=== PATIENT | male | born 2000 | race Caucasian/White ===

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

== ENCOUNTER 2020-01-22 01:57 | Emergency (ER) | payer BC, OTHER ==
[~2020-01-22] VITALS: Ht 188 cm; Wt 82.0 kg
[~2020-01-22 01:57] MED LIST changes: +CEFD300C3 PO; +OFLO5DRO33 OT
--- OUTSIDE RECORDS SUMMARY | 2020-01-22 02:07 | XMS REPORT ---
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 [employer] [facility] [place] [employer] [facility] [employer] Address [address] [address] Care Team Providers Care Rating Clerk Name Role Phone BERTA MAHARAJ Unavailable Unavailable GUNNER SULTANA Unavailable Unavailable Unavailable Unavailable Unavailable Unavailable Unavailable Unavailable Allergies Normalized Allergy Reported Date of Reaction(s) Care Provider Facility Allergy Type classification allergen Allergy Onset DA (6 Unclassified No Known Drug 04-02-2010 - no information YANELIS RANDALL , Not Available sources.) Allergies (22288) Medications No Information Problems Problem Normalized Date Last Normalized Normalized Provider Fa cility Classification Problem(s) Recorded Problem Problem Sta tus Duration Abdominal pain Abdominal Episodic Completed YANELIS RANDALL , Not Available (1 source.) pain, (77401) unspecified site Fluid and Dehydration Episodic Completed YANELIS RANDALL , Not Av ailable electrolyte (76839) disorders (1 source.) Other ear and Otalgia, Episodic Completed BERTA Not Avail able sense organ bilateral [place] (31434) disorders (3 sources.) Other lower Other Episodic Completed YANELIS RANDALL , Not Myriam ilable respiratory nonspecific (47294) disease (1 abnormal source.) finding of lung field Otitis media Otitis media, Episodic Completed BERTA Not A vailable and related unspecified, [place] (83993) conditions (3 bilateral sources.) Procedures No Information Immunizations Normalized Immunization Date Notes Care Provider Facili ty Immunization influenza, seasonal, 07-03-2019 no information no name [facility] injectable [facility] (10690) tetanus toxoid, 07-03-2019 no information no name [facility] reduced diphtheria [facility] acellular pertussis (63204) vaccine, adsorbed Results No Information Vital Signs No Information Interventions No Information Plan of Treatment No Information Goals No Information Social History No Information Functional Status No Information Mental Status No Information Encounters Encounter Normalized Encounter Encounter Diagnosis Care Provi gunner Organization Date Type 02-12-2017 Emergency department no information no name no organization name - patient visit 02-12-2017 07-03-2019 Patient encounter no information no name no or ganization name procedure 02-11-2017 Patient encounter no information no name no or ganization name procedure 11-14-2011 Patient encounter no information no name no or ganization name procedure 10-16-2011 Patient encounter no information no name no or ganization name procedure 10-09-2011 Patient encounter no information no name no or ganization name procedure no information Pre-operative no name no organization name examination, unspecified Medical Equipment No Information Payers No Information Additional Source Comments This clinical document has been generated using P[employer] software that has been certified by the Office of the National Coordinator for Health Information Technology (ONC 15.99.04.3023.Diam.31.00.0.649325) and the National Committee for Asbestos Microscopist (NCQA, as an eMeasure certified technology). FOR RECORDS PERTAINING TO PATIENTS WHO ARE OR HAVE BEEN ENROLLED IN A CHEMICAL D EPENDENCY/SUBSTANCE ABUSE PROGRAM, SOME INFORMATION MAY BE OMITTED. This clinica l summary was aggregated from multiple sources. Caution should be exercised in using it in the provision of clinical care. This summary normalizes information from multiple sources, and as a consequence, information in this document may ma terially change the coding, format and clinical context of patient data. In joseph tion, data may be omitted in some cases. CLINICAL DECISIONS SHOULD BE BASED ON T HE PRIMARY CLINICAL RECORDS. [employer]. provides no warranty or guara ntee of the accuracy or completeness of information in this document.The followi ng information is based on time limited clinical information
[2020-01-22 02:29] VITALS: BP 125/76
[2020-01-22] MEDS ORDERED: LIDOCAINE 1% INJ 20 ML 20 ML VIAL ONE (02:43)
[2020-01-22] MEDS ORDERED: LIDOCAINE 2% 20 ML (XYLOCAINE) VIAL INJ ONE (02:45)
[2020-01-22] MEDS ORDERED: RX-TRIMETH/SULFA. 160-800 MG (BACTRIM DS) TAB PPK#2 PO STA (03:00)
--- NOTE | 2020-01-22 03:02 | NUR ---
5 sutures placed to right 3rd finger Addendum: 01/22/20 at 0320 by TIM right 4th finger
[2020-01-22] MEDS ORDERED: SULF1TAB35 PO (03:10)
--- NOTE | 2020-01-22 03:11 | ED Upper Extremity ---
General Chief Complaint: Laceration Stated Complaint: RT HAND RING FINGER INJURY Nursing Triage Note: right volar distal laceration after hitting house approx. 2230 01/21/2020 Nursing Sepsis Screen: No Definite Risk Source: patient History of Present Illness Date Seen by Provider: January 22, 2020 Time Seen by Provider: 02:36 Initial Comments PT ARRIVES VIA POV FROM HOME PT STATES HE "DRANK TOO MUCH" TONIGHT ( AT LEAST 8 SHOTS OF VODKA TONIGHT, WITH LAST DRINK AROUND 2244, AFTER HE INJURED HIMSELF) PT STATES AT 2245, HE "TRIED TO SWAT A MOTH" AND HIT THE SIDE OF THE H OUSE--PLASTIC SIDING--AND SUSTAINED A CUT TO RIGHT 4TH FINGER. DENIES OTHER INJURIES FROM THE INCIDENT NO PRIOR INJURIES TO THIS FINGER PT IS RIGHT HANDED PT STATES LAST TETANUS SHOT WAS AGE 14, AND DECLINES ONE TODAY Allergies and Home Medications Allergies Coded Allergies: No Known Drug Allergies (Unverified , 04/02/10) Home Medications Sulfamethoxazole/Trimethoprim 1 Each Tablet, 1 EACH PO BID Prescribed by: LESVIA ENGLISH on 01/22/20 0310 Patient Home Medication List Home Medication List Reviewed: Yes Review of Systems Constitutional: no symptoms reported Musculoskeletal: see HPI Skin: see HPI Psychiatric/Neurological: No Symptoms Reported; Denies Numbness, Denies Paresthesia, Denies Weakness Past Nkafvgk-Cycrre-Kevngu Hx Past Med/Social Hx: Reviewed and Corrections made Patient Social History Alcohol Use: Regular Use (DRINKS "ONCE A WEEK" --HEAVY AT TIMES) Number of Drinks Today: 6 Alcohol Beverage of Choice: Vodka Recreational Drug Use: No Drug of Choice: denies Smoking Status: Current Everyday Smoker (< 1/2 PPD) Type Used: Cigarettes Recent Foreign Travel: No Contact w/Someone Who Travel: No Recent Infectious Disease Expo: No Recent Hopitalizations: No Physical Abuse: No Sexual Abuse: No Mistreated: No Fear: No Immunizations Up To Date Tetanus Booster (TDap): Less than 5yrs PED Vaccines UTD: Yes Seasonal Allergies Seasonal Allergies: No Past Medical History Surgeries: Yes (WISDOM TEETH REMOVED) Respiratory: No Cardiac: No Neurological: No Genitourinary: No Gastrointestinal: No Musculoskeletal: No Endocrine: No HEENT: No Cancer: No Psychosocial: No Integumentary: No Blood Disorders: No Family Medical History No Pertinent Family Hx Physical Exam Vital Signs Vital Signs - First Documented 01/22/20 02:29 Temp 36.7 Pulse 76 Resp 18 B/P (MAP) 125/76 (92) Pulse Ox 98 O2 Delivery Room Air Capillary Refill : Less Than 3 Seconds Height, Weight, BMI Height: 6'2.00" Weight: 180lbs. oz. 81.028407er; 23.00 BMI Method:Stated General Appearance: WD/WN, no apparent distress Hand: Right (4TH FINGER PAD WITH 2.5 CM IRREGULAR LACERATION. DEEP STRUCTURES INTACT. NO ACTIVE BLEEDING. MOTOR/SENSORY/VASCULAR INTACT. ), laceration, soft tissue tenderness Neurologic/Psychiatric: no motor/sensory deficits, alert, normal mood/affect, oriented x 3, other (SPEECH CLEAR, GAIT STEADY) Skin: normal color, warm/dry, other ( ABOVE) Procedures/Interventions Other Wound Location RIGHT 4TH FINGER PAD Wound Length (cm): 2.5 Wound's Depth, Shape: irregular, sub Q Wound Explored: clean Betadine Prep?: No (BETASEPT) Anesthesia: 1% Lidocaine Suture: Ethlion Suture Size: 4-0 Number of Sutures: 5 Layer Closure?: 1 Sterile Dressing Applied?: Yes Progress/Results/Core Measures Results/Orders My Orders Orders - LESVIA ENGLISH DO Finger(S) (01/22/20 02:37) Lidocaine 2% Injection 20 Ml (Xylocaine (01/22/20 02:45) Lidocaine 1% Inj 20 Ml (Xylocaine 1% Inj (01/22/20 02:43) Rx-Trimeth/Sulfameth Ds Tab (Rx-Bactrim/ (01/22/20 03:00) Medications Given in ED Current Medications Medications Dose Ordered Sig/Lynda Route Start Time Stop Time Status Last Admin Dose Admin Lidocaine HCl 20 ml STK-MED ONCE .ROUTE 01/22/20 02:43 01/22/20 02:52 DC 01/22/20 02:54 20 ML Vital Signs/I&O 01/22/20 02:29 Temp 36.7 Pulse 76 Resp 18 B/P (MAP) 125/76 (92) Pulse Ox 98 O2 Delivery Room Air Blood Pressure Mean: 92 Diagnostic Imaging Comments XRAYS RIGHT 4TH FINGER--NO ACUTE BONY INJURY, PENDING RADIOLOGIST REVIEW Reviewed: Reviewed by Me Departure Impression Primary Impression: laceraion RigHT 4th finger Disposition: 01 HOME, SELF-CARE Condition: Stable Departure-Patient Inst. Referrals: NO,LOCAL PHYSICIAN (PCP/Family) Primary Care Physician Patient Instructions: Laceration Repair With Stitches (DC) Add. Discharge Instructions: CLEAN WOUND TWICE A DAY WITH ANTIBACTERIAL SOAP AND WATER ON A Q-TIP, OTHERWISE KEEP CLEAN AND DRY SUTURES OUT IN 10 DAYS--RETURN TO ER FOR REMOVAL TYLENOL NEEDED FOR PAIN All discharge instructions reviewed with patient and/or family. Voiced understanding. Scripts Sulfamethoxazole/Trimethoprim (Bactrim Ds Tablet) 1 Each Tablet 1 EACH PO BID, #20 TAB Prov: LESVIA ENGLISH DO 01/22/20 Work/School Note: Work Release Form Date Seen in the Emergency Department: January 22, 2020 Return to Work: January 23, 2020 Other Restrictions Listed Below: KEEP WOUND CLEAN AND DRY LIMITED USE OF RIGHT HAND LESVIA ENGLISH DO January 22, 2020 03:11
--- NOTE | 2020-01-22 06:45 | Diagnostic Imaging Report ---
Clinical indication: Patient with laceration anterior side of distal right 4th digit. Patient cut it on the siding of the house while swatting a mosquito. EXAM: X-ray of the right 4th finger, 3 views. COMPARISON: None. Findings and impression: 1: There is no acute fracture or dislocation. 2: There is no radiodense foreign object. There is soft tissue swelling and irregularity involving the volar aspect of the soft tissue adjacent to the 4th distal phalanx. This may be related to patient's history of laceration. 3: There is no other significant abnormality seen on this exam. Dictated by: Dictated on workstation # [id number]
== END 2020-01-22 03:17 | disposition home or self-care (01) ==
LOC: EDUNIT# 01:57 → ER 02:02
DX: S61.214A Laceration without foreign body of right ring finger without damage to nail, initial encounter (principal); F17.210 Nicotine dependence, cigarettes, uncomplicated; W26.8XXA Contact with other sharp object(s), not elsewhere classified, initial encounter
CPT/HCPCS: 12001; 73140

== ENCOUNTER 2020-02-01 13:13 | Emergency (ER) | payer BC ==
[~2020-02-01] VITALS: Ht 190 cm; Wt 81.6 kg
[~2020-02-01 13:13] MED LIST changes: +SULF1TAB35 PO
[2020-02-01 13:44] VITALS: BP 121/76
--- OUTSIDE RECORDS SUMMARY | 2020-02-01 15:58 | XMS REPORT | Encounter Summary ---
Author Author [facility] Organization [facility] Address Unknown Phone Unavailable Care Team Providers Care Family Practice Physician Assistant Name Role Phone PCP Unavailable Reason for Visit * Reason Comments Finger laceration round 1130am today Encounter Details Care Team Description Date Type Department Martha Brooks, CUB REPORTER [address] [place] [address] Laceration of left index finger without foreign body without damage to nail, initial encounter (Primary Dx) 05/27/2018 Office Visit [facility] [email or web address] [address] [place] [address] Social History Date Tobacco Use Types Packs/Day Years Used Current Every Day Smoker Smokeless Tobacco: Never Used Tobacco Cessation: Ready to Quit: No; Co unseling Given: Yes Sex Assigned at Date Recorded Not on file Industry Job Start Date Occupation Not on file Not on file Not on file Travel End Travel History Travel Start No recent travel history available. documented as of this encounter Last Filed Vital Signs Reading Time Taken Comments Vital Sign 122/82 05/27/2018 12:54 PM CDT Blood Pressure 106 05/27/2018 12:54 PM CDT Pulse 37.3 C (99.2 F) 05/27/2018 12:54 PM CDT Temperature - - Respiratory Rate 97% 05/27/2018 12:54 PM CDT Oxygen Saturation - - Inhaled Oxygen Concentration 72.1 kg (159 lb) 05/27/2018 12:54 PM CDT Weight 190.5 cm (6' 3") 05/27/2018 12:54 PM CDT Height 19.87 05/27/2018 12:54 PM CDT Body Mass Index documented in this encounter Progress Notes * Ria, YOLI Thomas - 05/28/2018 8:14 AM CDT Associated Order(s): LACERATION REPAIR Post-Procedure Diagnose(s): Laceration of left index finger without foreign body without damage to nail, initial encounter HISTORY OF PRESENT ILLNESS Kushal Calixto, a 17 y.o. male presents with a Chief Complaint of Finger laceration (round 1130am today) Subjective 17 year old white male presents to the [facility] with complaints of a cut on his finger that occurred about 30 minutes ago. He was slicing a tomato and made a c lean cut with a with his tomato slicer. Her was able to stop the bleeding by lily lying pressure. He is up to date on tetanus. REVIEW OF SYSTEMS Review of Systems Constitutional: Negative for activity change, appetite change, chills, diaphores is, fatigue and fever. HENT: Negative for congestion, ear discharge, ear pain, sinus pain, sinus pressu re and sore throat. Eyes: Negative. Respiratory: Negative for cough, chest tightness, shortness of breath and wheezi ng. Gastrointestinal: Negative for abdominal pain, diarrhea, nausea and vomiting. Genitourinary: Negative for decreased urine volume and dysuria. Musculoskeletal: Negative for arthralgias, back pain, gait problem, joint swelli ng, myalgias, neck pain and neck stiffness. Skin: Positive for wound. Allergic/Immunologic: Negative for environmental allergies, food allergies and i mmunocompromised state. Neurological: Negative for weakness and headaches. Psychiatric/Behavioral: Negative for confusion. The patient is not nervous/anxio us. Objective PHYSICAL EXAM BP 122/82 | Pulse (!) 106 | Temp 99.2 F (37.3 C) | Ht 6' 3" (1.905 m) | Wt 72.1 kg (159 lb) | SpO2 97% | BMI 19.87 kg/m Physical Exam Constitutional: He is oriented to person, place, and time. He appears well-devel oped and well-nourished. No distress. HENT: Head: Normocephalic and atraumatic. Right Ear: External ear normal. Left Ear: External ear normal. Nose: Nose normal. Mouth/Throat: Oropharynx is clear and moist. No oropharyngeal exudate. Eyes: Pupils are equal, round, and reactive to light. Conjunctivae and EOM are n ormal. Right eye exhibits no discharge. Left eye exhibits no discharge. Neck: Normal range of motion. Neck supple. Cardiovascular: Normal rate, regular rhythm and normal heart sounds. Exam revea ls no gallop and no friction rub. No murmur heard. Pulmonary/Chest: Effort normal and breath sounds normal. No respiratory distress . He has no wheezes. He has no rales. He exhibits no tenderness. Abdominal: Soft. There is no tenderness. Musculoskeletal: Normal range of motion. He exhibits no edema or tenderness. Lymphadenopathy: He has no cervical adenopathy. Neurological: He is alert and oriented to person, place, and time. No cranial ne rve deficit. Skin: Skin is warm and dry. Capillary refill takes less than 2 seconds. He is no t diaphoretic. < 1 cm superficial laceration noted on palmar surface of left index finger- good approximation. No active bleeding noted Psychiatric: He has a normal mood and affect. His behavior is normal. Judgment a nd thought content normal. Nursing note and vitals reviewed. Laceration Repair Date/Time: 05/28/2018 9:09 AM Performed by: MARTHA BROOKS Authorized by: MARTHA BROOKS Body area: upper extremity Location details: left index finger Laceration length: 1 cm Foreign bodies: no foreign bodies Tendon involvement: none Nerve involvement: none Vascular damage: no Sedation: Patient sedated: no Preparation: Patient was prepped and draped in the usual sterile fashion. Irrigation solution: tap water Irrigation method: syringe Amount of cleaning: standard Debridement: none Degree of undermining: none Skin closure: Steri-Strips and glue Assessment ASSESSMENT and PLAN: ICD-10-CM ICD-9-CM 1. Laceration of left index finger without foreign body without damage to nail, initial encounter S61.446A 883.0 Patient tolerated procedure well. Keep dry for the first 24 hours. OK to let tommie er run over laceration after 24 hours. Do not soak. Steri strips sent with patie nt to reinforce if needed. Follow up with PCP PRN. Patient states understanding of all instruction. documented in this encounter Plan of Treatment Not on filedocumented as of this encounter Procedures Comments Procedure Name Priority Date/Time Associated Diag nosis LACERATION REPAIR Routine 05/28/2018 Laceration o f left index 8:14 AM CDT finger without foreign body without damage to nail, initial encounter documented in this encounter Results * LACERATION REPAIR (05/28/2018 8:14 AM CDT) Narrative Performed At Martha Brooks APRN 05/28/2018 9:12 AM [facility] Laceration Repair [facility] Date/Time: 05/28/2018 9:09 AM Performed by: MARTHA BROOKS Authorized by: MARTHA BROOKS Body area: upper extremity Location details: left index finger Laceration length: 1 cm Foreign bodies: no foreign bodies Tendon involvement: none Nerve involvement: none Vascular damage: no Sedation: Patient sedated: no Preparation: Patient was prepped and dr margaret in the usual sterile fashion. Irrigation solution: tap water Irrigation method: syringe Amount of cleaning: standard Debridement: none Degree of undermining: none Skin closure: Steri-Strips and glue Performing Organization Address City/State/Zipcode Ph one Number [facility] [address][id number] [place] [address] [facility] [address] [employer] documented in this encounter Visit Diagnoses Diagnosis Laceration of left index finger without foreign body without damage to nail, initial encounter - Primary documented in this encounter
--- OUTSIDE RECORDS SUMMARY | 2020-02-01 15:58 | XMS REPORT ---
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 [employer] [facility] [employer] Address [address] [address] Care Team Providers Care Hood Maker Name Role Phone BERTA MAHARAJ Unavailable Unavailable GUNNER SULTANA Unavailable Unavailable BERTA MAHARAJ Unavailable Unavailable AMADOR DO, LESVIA K Unavailable Unavailable Unavailable Unavailable Unavailable Unavailable Unavailable Unavailable Unavailable Unavailable Allergies Normalized Allergy Reported Date of Reaction(s) Care Provider Facility Allergy Type classification allergen Allergy Onset DA (6 Unclassified No Known Drug 04-02-2010 - no information YANELIS RANDALL , Not Available sources.) Allergies (63341) Medications No Information Problems Active Problems Problem Normalized Date Last Normalized Normalized Provider Fa cility Classification Problem(s) Recorded Problem Problem Sta tus Duration External cause Contact with 01-25-2020 - Episodic Active LESVIA AMADOR , DO [facility] Via codes: other sharp Lia Cut/boss (2 object(s), not Hospital - sources.) elsewhere [place] classified, (90989) initial encounter Open wounds of Laceration 01-25-2020 - Episodic Active LESVIA RE NO , DO [facility] Via extremities (2 without Lia sources.) foreign body Hospital - of right ring [place] finger without (76750) damage to nail, initial encounter Substance-rela Nicotine 01-25-2020 - Chronic Active LESVIA AMADOR , DO [facility] Via jose a disorders dependence, Lia (2 sources.) cigarettes, Hospital - uncomplicated [place] (47303) Other ear and Otalgia, 01-21-2020 - Episodic Active BERTA [facility] Via sense organ bilateral [place] disorders (4 Hospital - sources.) [place] (56917) Otitis media Otitis media, 01-21-2020 - Episodic Active GRETCH EN [facility] Via and related unspecified, [place] conditions (4 bilateral Hospital - sources.) [place] ([address]) Other injuries Unspecified 01-25-2020 - Episodic Active LESVIA R SERGEI , DO [facility] Via and conditions injury of [facility] due to right wrist, [facility] - external hand and [place] causes (2 finger(s), (77397) sources.) initial encounter Past or Other Problems Problem Normalized Date Last Normalized Normalized Provider Fa cility Classification Problem(s) Recorded Problem Problem Sta tus Duration Abdominal pain Abdominal Episodic Completed YANELIS RANDALL , Not Available (1 source.) pain, (99965) unspecified site Fluid and Dehydration Episodic Completed YANELIS RANDALL , Not Av ailable electrolyte (60781) disorders (1 source.) Other lower Other Episodic Completed YANELIS RANDALL , Not Myriam ilable respiratory nonspecific (88376) disease (1 abnormal source.) finding of lung field Procedures No Information Immunizations Normalized Immunization Date Notes Care Provider [facility] Immunization influenza, seasonal, 07-03-2019 no information no name [facility] injectable [facility] (48798) tetanus toxoid, 07-03-2019 no information no name [facility] reduced diphtheria [facility] acellular pertussis (26606) vaccine, adsorbed Results No Information Vital Signs No Information Interventions No Information Plan of Treatment No Information Goals No Information Social History No Information Functional Status No Information Mental Status No Information Encounters Encounter Normalized Encounter Encounter Diagnosis Care Provi gunner Organization Date Type 01-21-2020 Emergency department no information LESVIA ENGLISH DO (no [facility] - patient visit phone) [facility] 01-21-2020 (no phone) 02-12-2017 Emergency department no information no name no organization name - patient visit 02-12-2017 02-11-2017 Emergency department no information BERTA TIERNEY [place] [facility] - patient visit (no phone) [facility] 02-11-2017 (no phone) 01-21-2020 Patient encounter no information LESVIA ENGLISH DO (no [facility]ia procedure phone) [facility] (no phone) 07-03-2019 Patient encounter no information no name [...] This clinical document has been generated using [employer] software that has been certified by the Office of the National Coordinator for Health Information Technology (ONC 15.99.04.3023.Diam.[id number]) and the National Committee for Transportation Modeler (NCQA, as an eMeasure certified technology). FOR [...] BASED ON T HE PRIMARY CLINICAL RECORDS. [employer] provides no warranty or guara ntee of the accuracy or completeness of information in this document.The followi ng information is based on time limited clinical information
--- OUTSIDE RECORDS SUMMARY | 2020-02-01 15:58 | XMS REPORT | Clinical Summary ---
Author Author [facility] Organization [facility] Address Unknown Phone Unavailable Care Team Providers Care Food Safety Officer Name Role Phone PCP Unavailable Allergies No Known Allergies Medications No known medications Active Problems No known active problems Social History Date Tobacco Use Types Packs/Day Years Used Current Every Day Smoker Smokeless Tobacco: Never Used Tobacco Cessation: Ready to Quit: No; Co unseling Given: Yes Sex Assigned at Date Recorded Not on file Industry Job Start Date Occupation Not on file Not on file Not on file Travel End Travel History Travel Start No recent travel history available. Last Filed Vital Signs Reading Time Taken [...] 05/27/2018 12:54 PM CDT Body Mass Index Plan of Treatment Health Maintenance Due Date Last Done Comments PNEUMOCOCCAL VACCINE 0-64 2004 YEARS (1 of 1 - PPSV23) HPV VACCINES (1 - Male 2009 2-dose series) INFLUENZA VACCINE 04/16/2019 Results Not on filefrom Last 3 Months Insurance Type Payer Benefit Subscriber ID Effective Phone Address Plan / Dates Group [employer] [id number] 2009- [address] BEN[address] Present [address] [place] [address] Advance Directives For more information, please contact: [phone] 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
--- OUTSIDE RECORDS SUMMARY | 2020-02-01 15:58 | XMS REPORT | Clinical Summary ---
Author [facility] [place], [facility] Organization [facility] Jim Guevara [place], Karin, [facility] Address Unknown Phone Unavailable Care Team Providers Care Product Evangelist Name Role Phone Pamela Singh MD PCP [phone] Allergies No Known Allergies Medications End Date Status Medication Sig Dispensed Refills Start Date Active sertraline (ZOLOFT) 50 mg Take 1 Tablet 30 Tablet 0 tabletIndications: (50 mg) by 8 Current moderate episode mouth daily. of major depressive disorder without prior episode Active Problems No known active problems Family History Medical History Relation Name Comments Depression Maternal Grandfather Other Maternal alchol Grandfather Depression Maternal Grandmother Depression Mother Other Paternal alchol Grandfather Relation Name Status Comments Brother Alive Father Alive Maternal Grandfather Maternal Grandmother Alive Mother Alive Paternal Grandfather Paternal Grandmother Alive Social History Date Tobacco Use Types Packs/Day Years Used Never Smoker Smokeless Tobacco: Never Used Drinks/Week oz/Week Comments Alcohol Use No Sex Assigned at Date Recorded Not on file Industry Job Start Date Occupation Not on file Not on file Not on file Travel End Travel History Travel Start No recent travel history available. Last Filed Vital Signs Reading Time Taken Comments Vital Sign 121/80 03/13/2018 2:07 PM CDT Blood Pressure 94 03/13/2018 2:07 PM CDT Pulse 36.2 C (97.1 F) 03/13/2018 2:07 PM CDT Temperature 18 03/13/2018 2:07 PM CDT Respiratory Rate 99% 03/13/2018 2:07 PM CDT room air Oxygen Saturation - - Inhaled Oxygen Concentration 73 kg (161 lb) 03/13/2018 2:07 PM CDT Weight 188 cm (6' 2") 03/13/2018 2:07 PM CDT Height 20.67 03/13/2018 2:07 PM CDT Body Mass Index Plan of Treatment Health Maintenance Due Date Last Done Comments HPV VACCINES (1 - Male 2009 2-dose series) INFLUENZA VACCINE 04/16/2019 PNEUMOCOCCAL VACCINE 0-64 Aged Out No longer el igible based YEARS on patient's age to complete this topic Results Not on filefrom Last 3 Months Insurance Type Payer Benefit Subscriber ID Effective Phone Address Plan / Dates Group [employer] [id number] 2009- [address] Present [address] [place] [address] Advance Directives For more information, please contact: [phone] 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
--- OUTSIDE RECORDS SUMMARY | 2020-02-01 15:59 | XMS REPORT | Encounter Summary ---
Author Author [facility], [place], [facility] Organization [facility] Nyla Fried, Karin, [facility] Address Unknown Phone Unavailable Care Team Providers Care Taper/Finisher Name Role Phone Nathan Carter MD PCP Encounter Details Care Team Description Date Type Department Lilliana Kerns, SANJUANA [facility] [address] [place] [address] 03/24/2014 [facility] Imaging Servi mari Encounter [place] [address] [place] [id number] Social History Date Tobacco Use Types Packs/Day Years Used Never Assessed Sex Assigned at Date Recorded Not on file Industry Job Start Date Occupation Not on file Not on file Not on file Travel End Travel History Travel Start No recent travel history available. documented as of this encounter Plan of Treatment Not on filedocumented as of this encounter Procedures Comments Procedure Name Priority Date/Time Associated Diag nosis XR HAND 3+ VW RIGHT Routine 03/24/2014 Injury, ot her and 12:36 PM CDT unspecified, finger documented in this encounter Results * XR HAND 3+ VW RIGHT (03/24/2014 12:36 PM CDT) Specimen Impressions Performed At Impression: Volar plate avulsion fracture, base of th e middle phalanx INTERFACE SYSTEM of the fifth finger. Narrative Performed At Right hand, three views. INTERFACE SYSTEM History: Pain. Comparison: None available. Fifth finger soft tissue swelling with punctate volar plate avulsion fracture of the middle phalanx. Joint spaces preserved. No evidence of other fracture, dislocation or other significant skeletal abnormality. Procedure Note Interface, Robert Sgf Incoming Radiology Results - 03/24/2014 12:43 PM CDT Right hand, three views. History: Pain. Comparison: None available. Fifth finger soft tissue swelling with punctate volar plate avulsion fracture of the middle phalanx. Joint spaces preserved. No evidence of other fracture, dislocation or other significant skeletal abnormality. IMPRESSION Impression: Volar plate avulsion fracture, base of the middle phalanx of the fifth finger. Performing Organization Address City/State/Zipcode Ph one Number INTERFACE SYSTEM INTERFACE SYSTEM Refer to clinic/hospital department documented in this encounter Visit Diagnoses Diagnosis Injury, other and unspecified, finger documented in this encounter
--- OUTSIDE RECORDS SUMMARY | 2020-02-01 15:59 | XMS REPORT | Encounter Summary ---
Author Author [facility] [place], [facility] Organization [facility] [place], [place], [facility] Address Unknown Phone Unavailable Care Team Providers Care Fixed Interest Dealer Name Role Phone PCP Unavailable Reason for Visit * Reason Comments Headache for 3 days and pain in back of head Abdominal Pain Encounter Details Care Team Description Date Type Department Fox Schultz DO [address] [place] [address] Acute sinusitis (Primary Dx) 06/19/2011 Office Visit [facility] [address] Social History Date Tobacco Use Types Packs/Day [...] Signs Reading Time Taken Comments Vital Sign - - Blood Pressure 100 06/19/2011 11:32 AM CDT Pulse 37 C (98.6 F) 06/19/2011 11:32 AM CDT Temperature 20 06/19/2011 11:32 AM CDT Respiratory Rate 99% 06/19/2011 11:32 AM CDT Oxygen Saturation - - Inhaled Oxygen Concentration 60.8 kg (134 lb) 06/19/2011 11:32 AM CDT Weight 172.7 cm (5' 8") 06/19/2011 11:32 AM CDT Height 20.37 06/19/2011 11:32 AM CDT Body Mass Index documented in this encounter Progress Notes * Fox Schultz DO - 06/19/2011 11:58 AM CDT HISTORY OF PRESENT ILLNESS Kushal Calixto, a 10 y.o. male. Headache This is a new problem. The pain is occipital. The pain is mild. The pain quality is similar to prior headaches (sinus pressure.). Associated symptoms include ab dominal pain, sinus pressure and cough. Pertinent negatives include no diarrhea, no nausea, no vomiting and no fever. Abdominal Pain Associated symptoms include congestion, cough and headaches. Pertinent negatives include no diarrhea, no fever, no nausea, no vomiting and no constipation. REVIEW OF SYSTEMS Review of Systems Constitutional: Negative for fever. HENT: Positive for congestion, rhinorrhea and sinus pressure. Respiratory: Positive for cough. Negative for wheezing. Gastrointestinal: Positive for abdominal pain. Negative for nausea, vomiting, di arrhea and constipation. Neurological: Positive for headaches. PHYSICAL EXAM Pulse 100 | Temp(Src) 98.6 F (37 C) (Tympanic) | Resp 20 | Ht 68" (172.7 cm) | Wt 134 lb (60.782 kg) | BMI 20.37 kg/m2 | SpO2 99% Physical Exam Vitals reviewed. Constitutional: He is active. HENT: Right Ear: Tympanic membrane and canal normal. Left Ear: Tympanic membrane and canal normal. Nose: Rhinorrhea and congestion present. Cardiovascular: Regular rhythm. Pulmonary/Chest: Effort normal and breath sounds normal. There is normal air ent ry. Abdominal: Soft. Bowel sounds are normal. Neurological: He is alert. Skin: Skin is warm. ASSESSMENT and PLAN: Encounter Diagnoses 1. Acute sinusitis (461.9J) documented in this encounter Plan of Treatment Not on filedocumented as of this encounter Visit Diagnoses Diagnosis Acute sinusitis - Primary Acute sinusitis, unspecified documented in this encounter
--- OUTSIDE RECORDS SUMMARY | 2020-02-01 15:59 | XMS REPORT | Encounter Summary ---
Author Author [facility] Organization [facility] [place], [place], [facility] Address Unknown Phone Unavailable Care Team Providers Care Psychiatric Social Worker Supervisor Name Role Phone Nathan Rolle MD PCP Reason for Referral * Eval and Treat (Routine) Referred By Contact Referred To Contact Status Reason Specialty Diagnoses / Procedures Pamela Singh MD [address] [place] [address] [facility] [address] [place] [address] Closed Psychology Diagnoses Current moderate episode of major depressive disorder without prior episode Reason for Visit * Reason Comments Depression Eating Disorder eating less the past month Encounter Details Care Team Description Date Type Department Roxann Vera MD [address] [place] [address] Current moderate episode of major depres sive disorder without prior episode (Primary Dx) 02/11/2018 [facility] [address] [place] [address] Social History Date Tobacco Use Types [...] Signs Reading Time Taken Comments Vital Sign 105/78 02/11/2018 4:20 PM CDT Blood Pressure 97 02/11/2018 4:20 PM CDT room air Pulse 37.5 C (99.5 F) 02/11/2018 4:20 PM CDT Temperature 18 02/11/2018 4:20 PM CDT Respiratory Rate 98% 02/11/2018 4:20 PM CDT room air Oxygen Saturation - - Inhaled Oxygen Concentration 74.8 kg (165 lb) 02/11/2018 4:20 PM CDT Weight 188 cm (6' 2") 02/11/2018 4:20 PM CDT Height 21.18 02/11/2018 4:20 PM CDT Body Mass Index documented in this encounter Progress Notes * Roxann Vera MD - 02/11/2018 4:19 PM CDT HISTORY OF PRESENT ILLNESS Kushal Calixto, a 17 y.o. male. Chief Complaint Patient presents with Depression Eating Disorder eating less the past month Subjective HPI 17 year old man is accompanied by his mother. He reports depression and anxiety . Mother is worried about a possible eating disorder since she has caught him s timulating vomiting after a meal. They give a history of dysthymia in mother, patient, and his younger brother. F ather tends to be hypomanic. Patient had a previous episode of sadness and depr ession about age 13 and was prescribed prozac then. Mother discovered unused pro tony in his room and knew he was not taking it as prescribed. She herself has bee n on various antidepressant medications and does not have much trust that the me dications are effective but felt best when on sertraline. They indicate the vida wagner grandmother has been on antidepressant medication for a long time (prozac) . Mother offers her opinion that the patient started having difficulties in 2 days time in early September when he broke up with his girlfriend and decided not to r eturn to school when he had just turned 17. She indicates the family is supporti ve of his decision. She assures him that he can continue living at home and work ing and it is ok if he prefers not to attend school/college. Ok to relax and le t things settle. Mother is particularly concerned that he has an eating disorder instead of depression or in addition to depression. She does step out of the ro om at his request and indicates he has reached the age when "he is a man now and makes his own decisions". Patient indicates that college is "not for him" He doesn't know what he wants t o do. He has not been eating much in past 2 months, lost 10 pounds in 3 months time un intentionally. 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 He likes his wor k and enjoys being at work. He wakes each morning feeling sick to his stomach and it carries through the day . He will eat a couple times of day. Sometimes he feels hungry and will order a large meal but only eat a few bites--rapidly feels full and after that he just feels like he is choking it down. He denies suicidal thoughts or plans. Lately he does not sleep as much. When not scheduled to work he stays up late t o play video games. He generally does not wake feeling rested after that. Only occasionally he feels anxious and tosses and turns and cannot sleep but that is not often. More often he is getting home from work late and since starting his second job he has to get up early the next morning. His previous habits were to stay up late (midnight or later) and then get up late the next morning (10 or 11 AM) Things he does for fun: Play video games with friends, play summer baseball. Family history of depression--mother with anxiety depression most of life--previ ous use of medication and now "free from it"--reports it helps to be busy, pushi ng boundaries, reading, journaling was on Xanax for several years and most recen tly was on zoloft for 4 years, previously tried cymbalta and lexapro and prozac (prozac made her sick), paxil. Patient's maternal grandfather had alcohol addiction, maternal grandmother with depression--has been on prozac about 20 years. Unknown paternal family although paternal grandfather had alcoholism. Patient indicates he knows of the family alcoholism history and he is cautious a bout alcohol but has used it. He has tried marijuana but prefers alcohol effect . No other street drug use. Patient indicates he is willing to consider counseling/psychology/psychiatry ref erral. He would like to have prescription antidepressant. Benefits of combined medication/counseling is discussed. Patient does give reassurance that he would communicate with physician or seek help with a counselor or emergency services if he felt suicidal. He indicates he would not put his loved ones through the g rief associated with suicide. REVIEW OF SYSTEMS Review of Systems Constitutional: Positive for appetite change. HENT: Negative. Eyes: Negative. Respiratory: Negative. Cardiovascular: Negative. Gastrointestinal: Negative. Endocrine: Negative. Genitourinary: Negative. Musculoskeletal: Negative. Skin: Negative. Allergic/Immunologic: Negative. Neurological: Negative. Hematological: Negative. Psychiatric/Behavioral: Negative. Depression Objective PHYSICAL EXAM BP 105/78 (BP Location: Left arm, Patient Position (BP): Sitting, BP Cuff Size: Adult) | Pulse 97 Comment: room air | Temp 99.5 F (37.5 C) (Tympanic) | Re sp 18 | Ht 6' 2" (1.88 m) | Wt 74.8 kg (165 lb) | SpO2 98% Comment: room air | BMI 21.18 kg/m Physical Exam Constitutional: He is oriented to person, place, and time. He appears well-devel oped and well-nourished. HENT: Head: Normocephalic and atraumatic. Nose: Nose normal. Mouth/Throat: Oropharynx is clear and moist. Eyes: Conjunctivae and EOM are normal. Neck: Normal range of motion. Neck supple. No thyromegaly present. Cardiovascular: Normal rate and regular rhythm. Pulmonary/Chest: Respirations are even and unlabored. Musculoskeletal: Normal range of motion. He exhibits no edema or tenderness. Lymphadenopathy: He has no cervical adenopathy. Neurological: He is alert and oriented to person, place, and time. No cranial ne rve deficit. He exhibits normal muscle tone. Coordination normal. Skin: Skin is warm, dry and intact. Psychiatric: He has a normal mood and affect. His speech is normal and behavior is normal. Judgment and thought content normal. Cognition and memory are normal. Nursing note and vitals reviewed. No results found for: WBC, HGB, HGBPOC, HCT, HCTPOC, PLT, MCV, ESR, ESRPOC, CHOL TOT, HDL, LDLCALC, LDLDIRECT, TRIGLYCERIDE, ALT, AST, NA, K, KPOC, CL, CO2, CREA T, BUN, GFR, TSH, TSHULTRA, THYROIDSTIM, PSA, INR, GLUCOSEF, GLUCOSE, HGBA1C, [place] CROALBUMIN, MALBUR, [id number] DEPRESSION SCREEN Positive: PHQ-2 score > 2 or PHQ-9 score > 9 PHQ-2 Total: 2 (02/11/18 1600) PHQ-9 Total: 10 (02/11/18 1600) He was given a prescription for an antidepressant, His suicide risk assessment w as completed and PHQ-9 or PHQ-2 score positive. Referral to [facility] r follow-up Normal BMI Range: 18 & older: > or = 18.5 and < 25 Body mass index is 21.18 kg/m. BMI within normal limits Assessment ASSESSMENT and PLAN: Encounter Diagnosis Name Primary? Current moderate episode of major depressive disorder without prior episode Yes Orders Placed This Encounter TSH REFLEXIVE External Referral to Psychology sertraline (ZOLOFT) 25 mg tablet DISCUSSION: I am not certain his previous depression at age 13 was a major depression. Doshi cinda, current symptoms have been pervasive over time to meet the diagnosis of manju or depression without prior episode. Only lab test necessary at this time is a T SH. Patient is agreeable to a referral to [facility] in [place], [place] . He will start on low dose sertraline and understands that dose adjustments will be needed and it will take time to be effective. He will return here in 3 weeks for reevaluation of the treatment plan. He will return sooner if he has any concerns. Return in 3 weeks (on 03/04/2018) for follow up right away if condition worsens. He voiced understanding and agreement with the treatment plan. He understands t he importance of taking his medications and keeping all follow-up appointments. All questions were answered. [id number] will be provided to patient u yoli check-out. documented in this encounter Plan of Treatment Order Schedule Name Type Priority Associated Diag noses Ordered: 02/11/2018 AMB REFERRAL TO Outpatient Routine Current modera te episode PSYCHOLOGY Referral of major depressive disorder without prior episode documented as of this encounter Visit Diagnoses Diagnosis Current moderate episode of major depre ssive disorder without prior episode - Primary documented in this encounter Additional Health Concerns Assessment Noted Time A Depression follow-up plan has been documented for t he patient 02/14/2018 4:14 PM CDT documented as of this encounter
--- OUTSIDE RECORDS SUMMARY | 2020-02-01 15:59 | XMS REPORT | Encounter Summary ---
Author Author [facility], [place], [place] [facility] Organization [facility] [place], [place], [place] [facility] Address Unknown Phone Unavailable Care Team Providers Care Patent Agent Name Role Phone Nathan Rolle MD PCP Encounter Details Care Team Description Date Type Department Lilliana Kerns, SANJUANA ROLLE [facility] [address] [place] [address] 01/26/2015 [facility] Imaging Servi mari Encounter [place] [address] [place] [address] Social History Date Tobacco Use Types Packs/Day [...] Name Priority Date/Time Associated Diag nosis XR ANKLE 3+ VW RIGHT Routine 01/26/2015 Pain in l imb 1:20 PM CDT documented in this encounter Results * XR ANKLE 3+ VW RIGHT (01/26/2015 1:20 PM CDT) Specimen Impressions Performed At Impression: No acute osseous abnormality right ankle . INTERFACE SYSTEM Narrative Performed At 3 VIEWS RIGHT ANKLE INTERFACE SYSTEM History: Pain in limb Comparison: None. Findings: No acute fracture or dislocat ion . The joint spaces are well maintained . Soft tissues are unremarka ble. Procedure Note Interface, Robert Sgf Incoming Radiology Results - 01/26/2015 2:11 PM CDT 3 VIEWS RIGHT ANKLE History: Pain in limb Comparison: None. Findings: No acute fracture or dislocation . The joint spaces are well maintained . Soft tissues are unremarkable. IMPRESSION Impression: No acute osseous abnormality right ankle . Performing Organization Address City/State/Zipcode one Number INTERFACE SYSTEM INTERFACE SYSTEM Refer to clinic/hospital department documented in this encounter Visit Diagnoses Diagnosis Pain in limb documented in this encounter
--- OUTSIDE RECORDS SUMMARY | 2020-02-01 15:59 | XMS REPORT | Encounter Summary ---
Author Author [facility] Jim Guevara [place], [place], [facility] Organization [facility] Jim GuevaraNyla, [place], [facility] Address Unknown Phone Unavailable Care Team Providers Care Collection Officer Name Role Phone Nathan Rolle MD PCP Encounter Details Care Team Description Date Type Department Manny Contreras, [employer] [address] [place] [address] 01/31/2016 [facility] Casi strong Encounter [facility] [address] [place] [address] Social History Date Tobacco Use Types Packs/Day Years Used Never Assessed Sex Assigned at Date Recorded Not on file Industry Job Start Date Occupation Not on file Not on file Not on file Travel End Travel History Travel Start No recent travel history available. documented as of this encounter Plan of Treatment Not on filedocumented as of this encounter Visit Diagnoses Not on filedocumented in this encounter
--- OUTSIDE RECORDS SUMMARY | 2020-02-01 15:59 | XMS REPORT | Encounter Summary ---
Author Author [facility] Jim Guevara, Nyla, Kar[place], [facility] [place], [facility] Address Unknown Phone Unavailable Care Team Providers Care Visual Education Director Name Role Phone Nathan Rolle MD PCP Reason for Visit * Reason Comments syncope On february 28 Vomiting On february 20 at work and lesley e other days Encounter Details Care Team Description Date Type Department Pamela Singh MD [address] [place] [address] Syncope, unspecified syncope type (Prima ry Dx); Current moderate episode of major depressive disorder without prior episode 03/04/2018 [facility] [address] [place] [address] Social History Date Tobacco Use [...] Signs Reading Time Taken Comments Vital Sign 128/82 03/04/2018 4:13 PM CDT Blood Pressure 85 03/04/2018 4:13 PM CDT Pulse 36.7 C (98.1 F) 03/04/2018 4:13 PM CDT Temperature 18 03/04/2018 4:13 PM CDT Respiratory Rate 97% 03/04/2018 4:13 PM CDT room air Oxygen Saturation - - Inhaled Oxygen Concentration 72.1 kg (159 lb) 03/04/2018 4:13 PM CDT Weight 190.5 cm (6' 3") 03/04/2018 4:13 PM CDT Height 19.87 03/04/2018 4:13 PM CDT Body Mass Index documented in this encounter Progress Notes * Soledad Montague, SNP - 03/04/2018 5:00 PM CDT HISTORY OF PRESENT ILLNESS Kushal Calixto, a 17 y.o. male presents with a Chief Complaint of syncope (On feb) and Vomiting (On february 20 at work and some other days) Subjective Presents for follow up on depression. Was seen in clinic 3 weeks ago for depres katharina and started on Zoloft 25 mg. At that time he had also experienced a 10 lb weight loss over 3 months and has lost another 6 lbs over the last 3 weeks. Rep orts that his appetite has improved and that he is eating more. Reports that he feels like mood is better overall. Denies wanting to harm self or others but st ates that he feels like if someone was to make him mad that he would "unleash" o n them. Does admit to feeling irritable. Four days ago he reports passing out w hile at work. Also states that he has had random vomiting episodes, approx 5-6 in the last 3 weeks but none in the last 1.5 to 2 weeks. No precipitating sympt oms that he is aware of. States that it seems to occur more in the morning when he wakes up. Mom states that they have not heard from [facility] for a counseling appointme and is wondering why. syncope Associated symptoms include vomiting. Pertinent negatives include no chest pain, dizziness, headaches or palpitations. Vomiting Associated symptoms: no headaches REVIEW OF SYSTEMS Review of Systems Constitutional: Positive for activity change, appetite change and unexpected sha ght change. HENT: Negative. Eyes: Negative. Respiratory: Negative. Cardiovascular: Positive for syncope. Negative for chest pain and palpitations. Gastrointestinal: Positive for vomiting. Endocrine: Negative. Genitourinary: Negative. Musculoskeletal: Negative. Skin: Negative. Allergic/Immunologic: Negative. Neurological: Positive for syncope. Negative for dizziness and headaches. Hematological: Negative. Psychiatric/Behavioral: Negative for sleep disturbance and suicidal ideas. Depression Objective PHYSICAL EXAM BP 128/82 (BP Location: Left arm, Patient Position (BP): Sitting, BP Cuff Size: Adult) | Pulse 85 | Temp 98.1 F (36.7 C) (Tympanic) | Resp 18 | Ht 6' 3" (1.905 m) | Wt 72.1 kg (159 lb) | SpO2 97% Comment: room air | BMI 19.87 kg/m Physical Exam Constitutional: He is oriented to person, place, and time. He appears well-devel oped. He is cooperative. HENT: Head: Normocephalic and atraumatic. Right Ear: Tympanic membrane and ear canal normal. Left Ear: Tympanic membrane and ear canal normal. Nose: Nose normal. Mouth/Throat: Uvula is midline, oropharynx is clear and moist and mucous membran es are normal. Eyes: Conjunctivae and lids are normal. Pupils are equal, round, and reactive to light. Neck: Trachea normal, normal range of motion and phonation normal. No thyromegal y present. Cardiovascular: Normal rate, regular rhythm and normal heart sounds. Pulmonary/Chest: Effort normal and breath sounds normal. Abdominal: Soft. Bowel sounds are normal. There is no tenderness. Musculoskeletal: Normal range of motion. Lymphadenopathy: He has no cervical adenopathy. Neurological: He is alert and oriented to person, place, and time. He has normal strength. Skin: Skin is warm, dry and intact. Capillary refill takes less than 2 seconds. Psychiatric: His speech is normal and behavior is normal. Judgment and thought c ontent normal. Cognition and memory are normal. He exhibits a depressed mood. He expresses no homicidal and no suicidal ideation. He expresses no suicidal plans and no homicidal plans. Procedures Assessment ASSESSMENT and PLAN: ICD-10-CM ICD-9-CM 1. Syncope, unspecified syncope type R55 780.2 CBC WITH DIFFERENTIAL COMPREHENSIVE METABOLIC PANEL SEDIMENTATION RATE EKG 12-LEAD 2. Current moderate episode of major depressive disorder without prior episode F 32.1 296.22 sertraline (ZOLOFT) 50 mg tablet Increase Zoloft to 50 mg daily Increase fluid intake. Will contact [facility] to get in touch with patient. Labs and EKG ordered. If another syncopal episode occurs will look at CT imagin g of the brain. Report any feelings of wanting to harm self or others. RTC in 2-3 weeks for follow up on medication and symptoms. * Pamela Singh MD - 03/04/2018 4:13 PM CDT HISTORY OF PRESENT ILLNESS Kushal Calixto, a 17 y.o. male. Chief Complaint Patient presents with syncope On february 28 Vomiting On february 20 at work and some other days Subjective HPI 17-year-old male presents to clinic for follow-up from previous visit. Patient was seen by Dr. Winn who evaluated him and started him on some Zoloft for depre ssive type symptoms. Patient was having irritability and mood swings. Patient feels like that still kind of the case. He is only on 25 mg of Zoloft to start with. Patient also having problems with nausea. Would just randomly vomit. Gomez s not done it for about a week and a half but did it multiple times. States lesley etimes he will just get up and other times he would be working during the day. Patient did have one episode at work where he passed out. No seizure-like activ ity. Mom is concerned about this. Patient did have some GI issue when he was y ounger was in the hospital. Mom is not sure what it was but feels like there ma y be eosinophilic in the title. Currently the patient states he is feeling a little bit better on the nausea par t he is eating more. Feels like his appetite is better over the past couple wee ks. Patient does feel little more irritable. He is sleeping fine. Feels like his energy levels are normal. Of note he has lost about 6 pounds in the last 3 weeks. REVIEW OF SYSTEMS Review of Systems Constitutional: Negative. HENT: Negative. Eyes: Negative. Respiratory: Negative. Cardiovascular: Negative. Gastrointestinal: Negative. Endocrine: Negative. Genitourinary: Negative. Musculoskeletal: Negative. Skin: Negative. Allergic/Immunologic: Negative. Neurological: Negative. Hematological: Negative. Psychiatric/Behavioral: Negative. All other systems reviewed and are negative. Objective PHYSICAL EXAM BP 128/82 (BP Location: Left arm, Patient Position (BP): Sitting, BP Cuff Size: Adult) | Pulse 85 | Temp 98.1 F (36.7 C) (Tympanic) | Resp 18 | Ht 6' 3" (1.905 m) | Wt 72.1 kg (159 lb) | SpO2 97% Comment: room air | BMI 19.87 kg/m Physical Exam Constitutional: He is oriented to person, place, and time. He appears well-devel oped and well-nourished. No distress. HENT: Head: Normocephalic and atraumatic. Eyes: Conjunctivae are normal. Neck: Neck supple. No tracheal deviation present. No thyromegaly present. Cardiovascular: Normal rate, regular rhythm, normal heart sounds and intact dist al pulses. No murmur heard. Pulmonary/Chest: Effort normal and breath sounds normal. No stridor. No respirat ory distress. He has no wheezes. He has no rales. Musculoskeletal: He exhibits no edema. Lymphadenopathy: He has no cervical adenopathy. Neurological: He is alert and oriented to person, place, and time. Skin: Skin is warm and dry. No rash noted. He is not diaphoretic. No erythema. Psychiatric: He has a normal mood and affect. His behavior is normal. No results found for: WBC, HGB, HGBPOC, HCT, HCTPOC, PLT, MCV, ESR, ESRPOC, CHOL TOT, HDL, LDLCALC, LDLDIRECT, TRIGLYCERIDE, ALT, AST, NA, K, KPOC, CL, CO2, CREA T, BUN, GFR, TSH, TSHULTRA, THYROIDSTIM, PSA, INR, GLUCOSEF, GLUCOSE, HGBA1C, MO CROALBUMIN, MALBUR, [id number] Normal BMI Range: 18 & older: > or = 18.5 and < 25 Body mass index is 19.87 kg/m. BMI within normal limits Assessment ASSESSMENT and PLAN: Encounter Diagnoses Name Primary? Syncope, unspecified syncope type Yes Current moderate episode of major depressive disorder without prior episode Orders Placed This Encounter CBC WITH DIFFERENTIAL COMPREHENSIVE METABOLIC PANEL SEDIMENTATION RATE EKG 12-LEAD sertraline (ZOLOFT) 50 mg tablet DISCUSSION: We will order some labs. We will check a CBC CMP ESR thyroid has already been o rdered we will get a EKG. Do a CT of the head at this point but will look at [employer] ing one if patient does have another episode of syncope. Will follow-up in 3- 4 weeks. Return in about 4 weeks (around 04/01/2018). He voiced understanding and agreement with the treatment plan. He understands t he importance of taking his medications and keeping all follow-up appointments. All questions were answered. Iroeg-Heuek-Nacoqic will be provided to patient u yoli check-out. T documented in this encounter Plan of Treatment Not on filedocumented as of this encounter Results * EKG 12-LEAD (03/05/2018 8:53 AM CDT) Narrative Performed At This result has an attachment that is n ot available. * SEDIMENTATION RATE (03/05/2018 8:49 AM CDT) ESR 2 0 - 15 mm/Hr [facility] (SEDIMENTATION [place] RATE) Specimen Blood Performing Organization Address City/State/[facility] Ph one Number [facility] CLIA # [id number] [place] [address] [place] [address] * COMPREHENSIVE METABOLIC PANEL (03/05/2018 8:49 AM CDT) SODIUM 139 136 - 145 mmol/L [facility] POTASSIUM 4.0 3.5 - 5.1 mmol/L [facility] CHLORIDE 98 98 - 107 mmol/L [facility] CO2 26 22 - 29 mmol/L [facility] CALCIUM 9.7 8.6 - 10.0 mg/dL [facility] L [place] BUN 18 6 - 20 mg/dL [facility] CREATININE 0.93 0.67 - 1.17 mg/dL [facility] AL [place] GLUCOSE 76 74 - 99 mg/dL [facility] TOTAL PROTEIN 7.7 6.6 - 8.7 g/dL [facility] ALBUMIN 4.9 3.5 - 5.2 g/dL [facility] BILIRUBIN TOTAL 0.7 <=1.2 mg/dL [facility] ALKALINE 78 40 - 129 U/L [facility] PHOSPHATASE [place] AST 27 U/L [facility] ALT 18 10 - 50 U/L [facility] GFR >60 >=60 mL/min/1.73 sq [facility] Comment: meter [place] eGFR has not been validated for use in the elderly (> 70 years of age), women, patients with serious co-morbid conditions, or persons with extremes of body size or muscle mass and should also be interpreted with caution in patients with acute kidney failure, dialysis dependent patients, patients reporting exceptional dietary intake (e.g. vegetarian diet, high protein diets, creatine supplementation), and patients with severe liver disease. Based on National Kidney Disease Education Program If patient is , please refer to the GFR result. GFR, >60 >=60 mL/min/1.[address] [facility] ITAL [place] meter [place] ANION GAP 15 mmol/L [facility] Specimen Blood Performing Organization Address City/State/Zipcode Ph one Number [facility] CLIA # [id number] [place], [place] [id number] [address] [place] [address] * CBC WITH DIFFERENTIAL (03/05/2018 8:49 AM CDT) WBC 11.1 (H) 4.0 - 10.5 K/uL [facility] RBC 5.36 4.00 - 6.00 M/uL [facility] HEMOGLOBIN 15.6 12.5 - 18.0 g/dL [facility] HEMATOCRIT 45.8 36.0 - 52.0 % [facility] MCV 85.4 78.0 - 100.0 [facility] MCH 29.1 27.0 - 34.0 pg [facility] MCHC 34.1 31.0 - 37.0 g/dL [facility] RDW 13.3 11.6 - 14.8 % [facility] RDW-STDEV 41.5 37.1 - 48.7 [facility] PLATELETS 243 150 - 450 K/uL [facility] MPV 10.6 9.3 - 12.4 [facility] NEUTROPHILS 62 37 - 80 % [facility] LYMPHOCYTES 25 10 - 50 % [facility] MONOCYTES 10 5 - 13 % [facility] EOSINOPHILS 3 0 - 10 % [facility] BASOPHILS 0 0 - 5 % [facility] NEUTROPHIL 6.83 2.00 - 6.90 K/uL [facility] ABSOLUTE [place] LYMPHOCYTE 2.76 1.00 - 3.40 K/uL [facility] ABSOLUTE [place] MONOCYTE 1.15 0.10 - 1.30 K/uL [facility] ABSOLUTE [place] EOSINOPHIL 0.31 0.00 - 0.70 K/uL [facility] ABSOLUTE [place] BASOPHILS 0.03 0.00 - 0.20 K/uL [facility] ABSOLUTE [place] Specimen Blood Performing Organization Address City/State/Zipcode Ph one Number [facility] CLIA # [id number] [place], [place] [address] [address] [place] [address] documented in this encounter Visit Diagnoses Diagnosis Syncope, unspecified syncope type - Chloé huizar Current moderate episode of major depre ssive disorder without prior episode documented in this encounter Additional Health Concerns Assessment Noted Time A Depression follow-up plan has been documented for t rakan patient 02/14/2018 4:14 PM CDT documented as of this encounter
--- OUTSIDE RECORDS SUMMARY | 2020-02-01 15:59 | XMS REPORT | Encounter Summary ---
Author Author [facility] Jim Guevara, [place], [place], [facility] Organization [facility] [place], [place], [facility] Address Unknown Phone Unavailable Care Team Providers Care Blasting Machine Operator Name Role Phone Pamela Singh MD PCP [phone] Reason for Visit * Reason Comments Referral Encounter Details Care Team Description Date Type Department Pamela Snigh MD [address] [place] [address] Referral 12/19/2018 Telephone [facility] [address] [place] [address] Social History Date Tobacco Use Types Packs/Day Years Used Never Assessed Sex Assigned at Date Recorded Not on file Industry Job Start Date Occupation Not on file Not on file Not on file Travel End Travel History Travel Start No recent travel history available. documented as of this encounter Miscellaneous Notes * Telephone Encounter - Jazmine Burns - 12/19/2018 11:10 AM CDT BW Patient has been contacted several time to schedule with Dr Zaragoza and [facility]. He has not returned phone calls. documented in this encounter Plan of Treatment Not on filedocumented as of this encounter Visit Diagnoses Not on filedocumented in this encounter Additional Health Concerns Assessment Noted Time A Depression follow-up plan has been documented for t rakan patient 02/14/2018 4:14 PM CDT documented as of this encounter
--- OUTSIDE RECORDS SUMMARY | 2020-02-01 15:59 | XMS REPORT | Encounter Summary ---
Author Author [facility] Jim Guevara, [place], [place], [facility] Organization [facility] [place], [place], [facility] Address Unknown Phone Unavailable Care Team Providers Care Entry Analyst Name Role Phone Pamela Singh MD PCP [phone] Reason for Visit * Reason Comments Wound Check bump to righ side going for about 4-5 days Encounter Details Care Team Description Date Type Department Pamela Singh MD [address] [place] [id number] Lymphadenopathy, inguinal (Primary Dx) 03/13/2018 Office Visit [facility] [address] [place] [address] Social History Date Tobacco Use [...] 03/13/2018 2:07 PM CDT Body Mass Index documented in this encounter Progress Notes * Soledad Montague, SNP - 03/13/2018 2:27 PM CDT HISTORY OF PRESENT ILLNESS Kushal Calixto, a 17 y.o. male presents with a Chief Complaint of Wound Check (bu mp to righ side going for about 4-5 days) Subjective Presents with a "bump in the groin". 5 days ago he noticed a bump in his right groin when he got up in the morning. States that it is tender to touch but has n ot affected his daily life. He denies any fever, urinary symptoms, testicular p ain or changes, or penile discharge. He is sexually active but uses "protection ". States that bump has not changed since he first noticed it. Wound Check REVIEW OF SYSTEMS Review of Systems Constitutional: Negative for activity change, appetite change, chills, fatigue a nd fever. HENT: Negative. Eyes: Negative. Respiratory: Negative. Cardiovascular: Negative. Gastrointestinal: Negative. Negative for constipation and diarrhea. Endocrine: Negative. Genitourinary: Negative. Negative for discharge, penile pain, scrotal swelling and testicular pain. Musculoskeletal: Negative. Skin: Negative. Allergic/Immunologic: Negative. Neurological: Negative. Hematological: Positive for adenopathy. Psychiatric/Behavioral: Negative. Objective PHYSICAL EXAM BP 121/80 (BP Location: Right arm, Patient Position (BP): Sitting, BP Cuff Size: Adult) | Pulse 94 | Temp 97.1 F (36.2 C) (Tympanic) | Resp 18 | Ht 6' 2" (1.88 m) | Wt 73 kg (161 lb) | SpO2 99% Comment: room air | BMI 20.67 kg/m Physical Exam Constitutional: He appears well-developed and well-nourished. He is cooperative. HENT: Head: Normocephalic and atraumatic. Right Ear: External ear normal. Left Ear: External ear normal. Nose: Nose normal. Mouth/Throat: Uvula is midline, oropharynx is clear and moist and mucous membran es are normal. No oropharyngeal exudate, posterior oropharyngeal edema or mechanical specialist ior oropharyngeal erythema. Eyes: Conjunctivae and lids are normal. Pupils are equal, round, and reactive to light. Neck: Trachea normal, normal range of motion, full passive range of motion witho ut pain and phonation normal. Cardiovascular: Normal rate, regular rhythm and normal heart sounds. Pulmonary/Chest: Effort normal. Abdominal: Soft. Normal appearance and bowel sounds are normal. Musculoskeletal: Normal range of motion. Lymphadenopathy: Inguinal adenopathy noted on the right side. Right: Inguinal adenopathy present. 7-8 mm lymph node palpated in the right inguinal canal. Node is freely movable, rubbery in texture, and tenderness is present. No signs of localized infection seen. Neurological: He is alert. He has normal strength. Skin: Skin is warm, dry and intact. Capillary refill takes less than 2 seconds. No rash noted. Psychiatric: He has a normal mood and affect. His speech is normal and behavior is normal. Judgment and thought content normal. Cognition and memory are normal. Procedures Assessment ASSESSMENT and PLAN: ICD-10-CM ICD-9-CM 1. Lymphadenopathy, inguinal R59.0 785.6 Discussed findings with patient. Assured patient that best course of action at this time is a watch and wait approach as there are no signs or symptoms of infe ction at this time. If node is still swollen in 3 weeks return to clinic for add itional testing. Notify clinic of any changes in size or S/S of infection develop. * Pamela Singh MD - 03/13/2018 2:09 PM CDT HISTORY OF PRESENT ILLNESS Kushal Calixto, a 17 y.o. male. Chief Complaint Patient presents with Wound Check bump to righ side going for about 4-5 days Subjective HPI 17-year-old male here for a lump in his right groin. States he noticed about 5 days ago. Is tender. Noticed it mostly when he stands up. Is sexually active. Denies any pain with urination burning urgency frequency lumps in the testicle s. REVIEW OF SYSTEMS Review of Systems Constitutional: Negative. Negative for fever. HENT: Negative. Eyes: Negative. Respiratory: Negative. Cardiovascular: Negative. Gastrointestinal: Negative. Endocrine: Negative. Genitourinary: Negative. Negative for discharge, frequency, genital sores, peni le pain, penile swelling, scrotal swelling and testicular pain. Musculoskeletal: Negative. Skin: Negative. Allergic/Immunologic: Negative. Neurological: Negative. Hematological: Negative. Psychiatric/Behavioral: Negative. All other systems reviewed and are negative. Objective PHYSICAL EXAM BP 121/80 (BP Location: Right arm, Patient Position (BP): Sitting, BP Cuff Size: Adult) | Pulse 94 | Temp 97.1 F (36.2 C) (Tympanic) | Resp 18 | Ht 6' 2" (1.88 m) | Wt 73 kg (161 lb) | SpO2 99% Comment: room air | BMI 20.67 kg/m Physical Exam Constitutional: He is oriented to person, place, and time. He appears well-devel oped and well-nourished. No distress. HENT: Head: Normocephalic and atraumatic. Eyes: Conjunctivae are normal. Cardiovascular: Normal rate and regular rhythm. Pulmonary/Chest: Effort normal. No respiratory distress. Abdominal: Hernia confirmed negative in the right inguinal area. Lymphadenopathy: Right: Inguinal adenopathy present. Left: No inguinal adenopathy present. Neurological: He is alert and oriented to person, place, and time. Skin: Skin is warm and dry. No rash noted. He is not diaphoretic. No erythema. Psychiatric: He has a normal mood and affect. His behavior is normal. Lab Results Component Value Date/Time WBC 11.1 (H) 03/05/2018 08:49 AM HEMOGLOBIN 15.6 03/05/2018 08:49 AM HEMATOCRIT 45.8 03/05/2018 08:49 AM PLATELETS 243 03/05/2018 08:49 AM MCV 85.4 03/05/2018 08:49 AM ESR (SEDIMENTATION RATE) 2 03/05/2018 08:49 AM ALT 18 03/05/2018 08:49 AM AST 27 03/05/2018 08:49 AM SODIUM 139 03/05/2018 08:49 AM POTASSIUM 4.0 03/05/2018 08:49 AM CHLORIDE 98 03/05/2018 08:49 AM CO2 26 03/05/2018 08:49 AM CREATININE 0.93 03/05/2018 08:49 AM BUN 18 03/05/2018 08:49 AM GFR >60 03/05/2018 08:49 AM GLUCOSE 76 03/05/2018 08:49 AM Normal BMI Range: 18 & older: > or = 18.5 and < 25 Body mass index is 20.67 kg/m. BMI within normal limits Assessment ASSESSMENT and PLAN: Encounter Diagnosis Name Primary? Lymphadenopathy, inguinal Yes No orders of the defined types were placed in this encounter. DISCUSSION: This appears to be a lymphadenopathy. Recommend patient monitor it since is onl y been there for 5 days. If it does not get better then we will need to further evaluate this about 3 more weeks. Return for follow-up if condition is not improving. He voiced understanding and agreement with the treatment plan. He understands t rakan importance of taking his medications and keeping all follow-up appointments. All questions were answered. Apwru-Hleyj-Aikeaiv will be provided to patient u yoli check-out. T documented in this encounter Plan of Treatment Not on filedocumented as of this encounter Visit Diagnoses Diagnosis Lymphadenopathy, inguinal - Primary documented in this encounter Additional Health Concerns Assessment Noted Time A Depression follow-up plan has been documented for royce bledsoe patient 02/14/2018 4:14 PM CDT documented as of this encounter
--- OUTSIDE RECORDS SUMMARY | 2020-02-01 15:59 | XMS REPORT | Encounter Summary ---
Author Author [facility], [place], [place], [facility] Organization [facility] [place], [place], [facility] Address Unknown Phone Unavailable Care Team Providers Care Sheet Rock Applier Name Role Phone Nathan Rolle MD PCP Encounter Details Care Team Description Date Type Department Pamela Singh MD [address] [place] [address] 03/05/2018 [facility] Outpatient Encounter Laboratory Services [facility] [address] [place] [address] Social History Date Tobacco Use Types Packs/Day Years Used Never Assessed Sex Assigned at Date Recorded Not on file Industry Job Start Date Occupation Not on file Not on file Not on file Travel End Travel History Travel Start No recent travel history available. documented as of this encounter Medications at Time of Discharge Start Date End Date Medication Sig Dispensed Refills 03/04/2018 sertraline (ZOLOFT) 50 mg Take 1 Tablet 30 Tablet 0 tabletIndications: (50 mg) by Current moderate episode mouth daily. of major depressive disorder without prior episode documented as of this encounter Progress Notes * Sarah Celeste LPN - 03/06/2018 7:48 AM CDT Patients mother wants patient to be referred to GI documented in this encounter Plan of Treatment Not on filedocumented as of this encounter Procedures Comments Procedure Name Priority Date/Time Associated Diag nosis CBC WITH DIFFERENTIAL Routine 03/05/2018 Syncope, unspecified 8:49 AM CDT syncope type SEDIMENTATION RATE Routine 03/05/2018 Syncope, un specified 8:49 AM CDT syncope type COMPREHENSIVE METABOLIC Routine 03/05/2018 Syncop e, unspecified PANEL 8:49 AM CDT syncope type documented in this encounter Results * SEDIMENTATION RATE (03/05/2018 8:49 AM CDT) ESR 2 0 - 15 mm/Hr [facility] (SEDIMENTATION PAULINA RATE) Specimen Blood Performing Organization Address City/State/[facility] Ph one Number [facility] CLIA # [id number] [place] [address] [place] [address] * COMPREHENSIVE METABOLIC PANEL (03/05/2018 8:49 AM CDT) SODIUM 139 136 - 145 mmol/L [facility] POTASSIUM 4.0 3.5 - 5.1 mmol/L [facility] CHLORIDE 98 98 - 107 mmol/L [facility] CO2 26 22 - 29 mmol/L [facility] CALCIUM 9.7 8.6 - 10.0 mg/dL [facility] BUN 18 6 - 20 mg/dL [facility] CREATININE 0.93 0.67 - 1.17 mg/dL [facility] GLUCOSE 76 74 - 99 mg/dL [facility] TOTAL PROTEIN 7.7 6.6 - 8.7 g/dL [facility] ALBUMIN 4.9 3.5 - 5.2 g/dL [facility] BILIRUBIN TOTAL 0.7 <=1.2 mg/dL [facility] ALKALINE 78 40 - 129 U/L [facility] PHOSPHATASE PAULINA AST 27 U/L [facility] ALT 18 10 - 50 U/L [facility] GFR >60 >=60 mL/min/1.73 sq [facility] Comment: meter PAULINA eGFR has not been validated for use [...] GFR result. GFR, >60 >=60 mL/min/1.73 sq [facility] ITAL NIGERIAN meter PAULINA ANION GAP 15 mmol/L [facility] Specimen Blood Performing Organization Address City/State/Zipcode Ph one Number [facility] CLIA # [id number] [place] [address] [place] [address] * CBC WITH DIFFERENTIAL (03/05/2018 8:49 AM CDT) WBC 11.1 (H) 4.0 - 10.5 K/uL [facility] RBC 5.36 4.00 - 6.00 M/uL [facility] HEMOGLOBIN 15.6 12.5 - 18.0 g/dL [facility] HEMATOCRIT 45.8 36.0 - 52.0 % [facility] MCV 85.4 78.0 - 100.0 [facility] MCH 29.1 27.0 - 34.0 pg [facility] MCHC 34.1 31.0 - 37.0 g/dL [facility] RDW 13.3 11.6 - 14.8 % [facility] RDW-STDEV 41.5 37.1 - 48.7 [facility] PLATELETS 243 150 - 450 K/uL [facility] MPV 10.6 9.3 - 12.4 [facility] NEUTROPHILS 62 37 - 80 % [facility] LYMPHOCYTES 25 10 - 50 % [facility] MONOCYTES 10 5 - 13 % [facility] EOSINOPHILS 3 0 - 10 % [facility] BASOPHILS 0 0 - 5 % [facility] NEUTROPHIL 6.83 2.00 - 6.90 K/uL [facility] ABSOLUTE PAULINA LYMPHOCYTE 2.76 1.00 - 3.40 K/uL [facility] ABSOLUTE [place] MONOCYTE 1.15 0.10 - 1.30 K/uL [facility] ABSOLUTE [place] EOSINOPHIL 0.31 0.00 - 0.70 K/uL [facility] ABSOLUTE [place] BASOPHILS 0.03 0.00 - 0.20 K/uL [facility] ABSOLUTE PAULINA Specimen Blood Performing Organization Address City/State/Zipcode Ph one Number [facility] CLIA # [id number] [place] [address] [place] [address] documented in this encounter Visit Diagnoses Diagnosis Syncope, unspecified syncope type documented in this encounter Additional Health Concerns Assessment Noted Time A Depression follow-up plan has been documented for t rakan patient 02/14/2018 4:14 PM CDT documented as of this encounter
--- OUTSIDE RECORDS SUMMARY | 2020-02-01 15:59 | XMS REPORT | Encounter Summary ---
Author Author [facility] [place], [place], [facility] Organization [facility] [place], [place], [facility] Address Unknown Phone Unavailable Care Team Providers Care Carpentry Specialist Name Role Phone Nathan Rolle MD PCP Reason for Referral * Eval and Treat (Routine) Referred By Contact Referred To Contact Status Reason Specialty Diagnoses / Procedures Pamela Singh MD [address] [place] [address] [facility] Marlin Hesham [address] [address] [facility] Diagnoses Non-intractable vomiting with nausea, unspecified vomiting type Reason for Visit * Reason Comments Referral Encounter Details Care Team Description Date Type Department Nathan Rolle MD [address] [facility] [place] [address] Referral 03/06/2018 Telephone [facility] [address] [place] [address] Social History Date Tobacco Use Types Packs/Day Years Used Never Assessed Sex Assigned at Date Recorded Not on file Industry Job Start Date Occupation Not on file Not on file Not on file Travel End Travel History Travel Start No recent travel history available. documented as of this encounter Miscellaneous Notes * Telephone Encounter - Sarah Celeste LPN - 03/07/2018 1:52 PM CDT Unable to call patient left voicemail. * Telephone Encounter - Pamela Singh MD - 03/07/2018 9:40 AM CDT Referral placed. T * Telephone Encounter - Sarah Celeste LPN - 03/06/2018 7:49 AM CDT Patients mother wants patient to be referred to GI please. documented in this encounter Plan of Treatment Order Schedule Name Type Priority Associated Diag noses Ordered: 03/07/2018 AMB REFERRAL TO Outpatient Routine Non-intractabl e vomiting GASTROENTEROLOGY Referral with nausea, unspec ified vomiting type documented as of this encounter Visit Diagnoses Diagnosis Non-intractable vomiting with nausea, u nspecified vomiting type - Primary documented in this encounter Additional Health Concerns Assessment Noted Time A Depression follow-up plan has been documented for t rakan patient 02/14/2018 4:14 PM CDT documented as of this encounter
--- OUTSIDE RECORDS SUMMARY | 2020-02-01 15:59 | XMS REPORT | Encounter Summary ---
Author Author [facility], [place], [facility] Organization [facility] [place], [place], [facility] Address Unknown Phone Unavailable Care Team Providers Care Sales And Marketing Analyst Name Role Phone PCP Unavailable Reason for Visit * Reason Comments Sports Physical Breast Problem Knot under left nipple Encounter Details Care Team Description Date Type Department Fox Schultz DO [address] [place] [address] Routine sports physical exam (Primary Dx ) 05/01/2011 Office Visit [facility] [address] [address] Social History Date Tobacco Use Types Packs/Day Years Used Never Smoker Smokeless Tobacco: Never Used Tobacco Cessation: Counseling Given: No Drinks/Week oz/Week Comments Alcohol Use No Sex Assigned at Date Recorded Not on file Industry Job Start Date Occupation Not on file Not on file Not on file Travel End Travel History Travel Start No recent travel history available. documented as of this encounter Last Filed Vital Signs Reading Time Taken Comments Vital Sign 118/70 05/01/2011 8:45 AM CDT Blood Pressure 83 05/01/2011 8:45 AM CDT Pulse 36.7 C (98 F) 05/01/2011 8:45 AM CDT Temperature 20 05/01/2011 8:45 AM CDT Respiratory Rate 100% 05/01/2011 8:45 AM CDT Oxygen Saturation - - Inhaled Oxygen Concentration 56.9 kg (125 lb 8 oz) 05/01/2011 8:45 AM CDT Weight 169.5 cm (5' 6.75") 05/01/2011 8:45 AM CDT Height 19.8 05/01/2011 8:45 AM CDT Body Mass Index documented in this encounter Progress Notes * Joyce Gee LPN - 05/01/2011 3:44 PM CDT Addended by: JOYCE GEE on: 05/01/2011 Modules accepted: Orders * Fox Schultz DO - 05/01/2011 9:07 AM CDT HISTORY OF PRESENT ILLNESS Kushal Calixto, a 10 y.o. male. HPI Comments: Here for sports physical. REVIEW OF SYSTEMS Review of Systems Constitutional: Negative for fever and chills. HENT: Negative for ear pain. Respiratory: Negative for cough and shortness of breath. Gastrointestinal: Negative for nausea, abdominal pain, diarrhea and constipation . Genitourinary: Negative for dysuria. Musculoskeletal: Negative for back pain and joint swelling. PHYSICAL EXAM BP 118/70 | Pulse 83 | Temp(Src) 98 F (36.7 C) (Tympanic) | Resp 20 | Ht 66. 75" (169.5 cm) | Wt 125 lb 8 oz (56.926 kg) | BMI 19.80 kg/m2 | SpO2 100% Physical Exam Vitals reviewed. Constitutional: He is active. HENT: Right Ear: Tympanic membrane normal. Left Ear: Tympanic membrane normal. Nose: Nose normal. Mouth/Throat: Mucous membranes are moist. Dentition is normal. No dental caries. No tonsillar exudate. Pharynx is normal. Eyes: Extraocular motions are normal. Pupils are equal, round, and reactive to l ight. Neck: Normal range of motion. Neck supple. Cardiovascular: Normal rate and regular rhythm. Pulmonary/Chest: Effort normal and breath sounds normal. There is normal air ent ry. Abdominal: Soft. Bowel sounds are normal. Musculoskeletal: Normal range of motion. Neurological: He is alert. Skin: Skin is warm and dry. ASSESSMENT and PLAN: Encounter Diagnoses 1. Routine sports physical exam (V70.3F) documented in this encounter Plan of Treatment Not on filedocumented as of this encounter Visit Diagnoses Diagnosis Routine sports physical exam - Primary Other general medical examination for a dministrative purposes documented in this encounter
--- OUTSIDE RECORDS SUMMARY | 2020-02-01 15:59 | XMS REPORT | Encounter Summary ---
Author Author [facility], [place], [place], [place] Organization [facility] [place], [place], [place] [facility] Address Unknown Phone Unavailable Care Team Providers Care Deck Supervisor Name Role Phone Nathan Rolle MD PCP Encounter Details Care Team Description Date Type Department Lilliana Kerns, [place] [facility] [address] [place] [address] 11/04/2013 [facility] Imaging Servi mari Encounter [place] [address] [place] [address] Social History Date Tobacco Use Types Packs/Day [...] Name Priority Date/Time Associated Diag nosis XR MANDIBLE 4+ VW Routine 11/04/2013 Jaw swelling 10:20 AM K [employer] documented in this encounter Results * XR MANDIBLE 4+ VW (11/04/2013 10:20 AM K [employer]) Specimen Narrative Performed At History: Jaw swelling. INTERFACE SYSTEM Four view mandible: No comparison studi es. No evidence of fracture or osseous destruction. Incompletely eru pted third mandibular molars bilaterally. No visualized focal soft tissue abnormalities. If clinically warranted, additional evalua tion could be obtained with CT imaging, although consideration should be given for avoiding unnecessary radiation exposure. Conclusion: Unremarkable mandible for t he patient's age. Please see above. Procedure Note Interface, Robert Sgf Incoming Radiology Results - 11/04/2013 10:42 AM K [employer] History: Jaw swelling. Four view mandible: No comparison studies. No evidence of fracture or osseous destruction. Incompletely erupted third mandibular molars bilaterally. No visualized focal soft tissue abnormalities. If clinically warranted, additional evaluation could be obtained with CT imaging, although consideration should be given for avoiding unnecessary radiation exposure. Conclusion: Unremarkable mandible for the patient's age. Please see above. Performing Organization Address City/State/Zipcode Ph one Number INTERFACE SYSTEM INTERFACE SYSTEM Refer to clinic/hospital department documented in this encounter Visit Diagnoses Diagnosis Jaw swelling Temporomandibular joint disorders, unsp ecified documented in this encounter
--- OUTSIDE RECORDS SUMMARY | 2020-02-01 15:59 | XMS REPORT | Encounter Summary ---
Author Author [facility] [place], [place], [place], [facility] Organization [facility] [place], [place], [facility] Address Unknown Phone Unavailable Care Team Providers Care Bartenders Name Role Phone Pamela Singh MD PCP [phone] Reason for Visit * Reason Comments Medication Refill Encounter Details Care Team Description Date Type Department Roxann Vera MD [address] [place] [address] 03/12/2018 [facility] [address] [place] [address] Social History Date Tobacco Use Types Packs/Day Years Used Never Assessed Sex Assigned at Date Recorded Not on file Industry Job Start Date Occupation Not on file Not on file Not on file Travel End Travel History Travel Start No recent travel history available. documented as of this encounter Miscellaneous Notes * Telephone Encounter - Tessa Cruz RMA - 03/12/2018 3:07 PM CDT Shanita at [facility] confirms 50 mg Zoloft was picked up Saturday by pt and 25 mg was s ent to us by mistake. * Telephone Encounter - Tessa Cruz RMA - 03/12/2018 2:39 PM CDT Pt comes to front window on Saturday stating he was having trouble getting his Zol oft from [facility]. I called [facility], they apologized as they did receive our [facility]scribe for Zoloft 50 mg on 03/04 it was just not processed. Today we receive request f or Zoloft 25mg from [facility]. documented in this encounter Plan of Treatment Not on filedocumented as of this encounter Visit Diagnoses Not on filedocumented in this encounter Additional Health Concerns Assessment Noted Time A Depression follow-up plan has been documented for t he patient 02/14/2018 4:14 PM CDT documented as of this encounter
--- OUTSIDE RECORDS SUMMARY | 2020-02-01 15:59 | XMS REPORT | Encounter Summary ---
Author Author [facility], [place], [place], [facility] Organization [facility] [place], [place], [facility] Address Unknown Phone Unavailable Care Team Providers Care Carburizing Furnace Operator Name Role Phone PCP Unavailable Reason for Visit * Reason Comments Sore Throat Encounter Details Care Team Description Date Type Department Fox Schultz DO [address] [place] [address] Sore throat (Primary Dx); Strep throat 05/28/2011 Office Visit [address] [id number] Social History Date Tobacco Use Types Packs/Day [...] Comments Vital Sign - - Blood Pressure - - Pulse 36.5 C (97.7 F) 05/28/2011 11:12 AM CDT Temperature - - Respiratory Rate - - Oxygen Saturation - - Inhaled Oxygen Concentration 59.4 kg (131 lb) 05/28/2011 11:12 AM CDT Weight - - Height - - Body Mass Index documented in this encounter Progress Notes * Fox Schultz DO - 05/28/2011 11:29 AM CDT HISTORY OF PRESENT ILLNESS uKshal Calixto, a 10 y.o. male. Sore Throat The current episode started 3 to 5 days ago. The problem occurs intermittently. The problem has been gradually worsening. The problem is moderate. Associated sy mptoms include sore throat. Pertinent negatives include no fever, no abdominal p ain, no neck pain, no cough, no wheezing and no eye pain. REVIEW OF SYSTEMS Review of Systems Constitutional: Negative for fever. HENT: Positive for sore throat. Negative for neck pain and neck stiffness. Eyes: Negative for pain. Respiratory: Negative for cough, shortness of breath and wheezing. Cardiovascular: Negative for chest pain and palpitations. Gastrointestinal: Negative for abdominal pain. Genitourinary: Negative for dysuria. PHYSICAL EXAM Temp(Src) 97.7 F (36.5 C) (Tympanic) | Wt 131 lb (59.421 kg) Physical Exam Constitutional: He is active. HENT: Right Ear: Tympanic membrane normal. Mouth/Throat: Pharynx erythema present. No oropharyngeal exudate or pharynx kalra chiae. Tonsils are 2+ on the right. Tonsils are 2+ on the left. Cardiovascular: Normal rate and regular rhythm. Pulmonary/Chest: Effort normal and breath sounds normal. Abdominal: Soft. Bowel sounds are normal. Neurological: He is alert. ASSESSMENT and PLAN: Encounter Diagnoses 1. Sore throat (462AA) POC RAPID STREP A 2. Strep throat (034.0K) * Caridad Gee LPN - 05/28/2011 11:22 AM CDT FAINT POSITIVE STREP A TEST. documented in this encounter Plan of Treatment Not on filedocumented as of this encounter Procedures Comments Procedure Name Priority Date/Time Associated Diag nosis POC RAPID STREP A Routine 05/28/2011 Sore throat documented in this encounter Results * POC RAPID STREP A (05/28/2011) RAPID STREP Positive (A) Negative Specimen Specimen from throat (specimen) documented in this encounter Visit Diagnoses Diagnosis Sore throat - Primary Acute pharyngitis Strep throat Streptococcal sore throat documented in this encounter"
--- OUTSIDE RECORDS SUMMARY | 2020-02-01 15:59 | XMS REPORT | Encounter Summary ---
Author Author [facility] [place]ue[place], [place], [place], [facility] Organization [facility] [place], [place], [facility] Address Unknown Phone Unavailable Care Team Providers Care Faculty Administrator Name Role Phone Nathan Rolle MD PCP Encounter Details Care Team Description Date Type Department Pamela Singh MD [address] [place] [address] 03/05/2018 [facility] EKG [place] Encounter [address] [place] [address] Social History Date Tobacco Use [...] prior episode documented as of this encounter Plan of Treatment Not on filedocumented as of this encounter Procedures Comments Procedure Name Priority Date/Time Associated Diag nosis VT ELECTROCARDIOGRAM, Routine 03/05/2018 Syncope, unspecified COMPLETE 8:53 AM CDT syncope type documented in this encounter Results * EKG 12-LEAD (03/05/2018 8:53 AM CDT) Narrative Performed At This result has an attachment that is n ot available. documented in this encounter Visit Diagnoses Diagnosis Syncope, unspecified syncope type documented in this encounter Additional Health Concerns Assessment Noted Time A Depression follow-up plan has been documented for t rakan patient 02/14/2018 4:14 PM CDT documented as of this encounter
--- OUTSIDE RECORDS SUMMARY | 2020-02-01 15:59 | XMS REPORT | Encounter Summary ---
Author Author [facility], [place], [place], [place] Organization [facility] [place], [place], [place] Address Unknown Phone Unavailable Care Team Providers Care Golf Sales Manager Name Role Phone Nathan Rolle MD PCP Reason for Visit * Reason Comments Patient Communication Encounter Details Care Team Description Date Type Department Roxann Vera MD [address] [place] [address] Patient Communication 02/14/2018 Telephone [facility] [address] [place] [address] Social History Date Tobacco Use Types Packs/Day Years Used Never Assessed Sex Assigned at Date Recorded Not on file Industry Job Start Date Occupation Not on file Not on file Not on file Travel End Travel History Travel Start No recent travel history available. documented as of this encounter Miscellaneous Notes * Telephone Encounter - Roxann Vera MD - 02/14/2018 4:17 PM CDT Call placed back to Мария. She is informed that the patient's primary care o ice did not contact her. She indicated she assumed the call she was trying to return was from our office. It is possible that [facility] was calling to co zheng the referral appointment for Kushal Calixto. I advised her that we had planned for a thyroid blood test and she could remind the patient to stop at the hospital lab for the test at his convenience. * Telephone Encounter - Jazmine Burns - 02/14/2018 1:14 PM CDT LH Patients Mother is calling, she states the Doctor called and they are returning the call. Мария the Mother is on the patients PHI her number is [phone]. documented in this encounter Plan of Treatment Not on filedocumented as of this encounter Visit Diagnoses Not on filedocumented in this encounter Additional Health Concerns Assessment Noted Time A Depression follow-up plan has been documented for t rakan patient 02/14/2018 4:14 PM CDT documented as of this encounter
--- OUTSIDE RECORDS SUMMARY | 2020-02-01 15:59 | XMS REPORT | Encounter Summary ---
Author Author [facility] [place], [facility] Organization [facility] [place], [facility] Address Unknown Phone Unavailable Care Team Providers Care Replenishment Analyst Name Role Phone Pamela Singh MD PCP [phone] Encounter Details Care Team Description Date Type Department Other unknown and unspecifie d cause of morbidity or mortality (Primary Dx) 10/22/2010 Outpatient [place] Conversion [place] [id number] [facility] [place] [address] Social History Date Tobacco Use Types Packs/Day Years Used Never Assessed Sex Assigned at Date Recorded Not on file Industry Job Start Date Occupation Not on file Not on file Not on file Travel End Travel History Travel Start No recent travel history available. documented as of this encounter Plan of Treatment Not on filedocumented as of this encounter Visit Diagnoses Diagnosis Other unknown and unspecified cause of morbidity or mortality - Primary documented in this encounter
--- OUTSIDE RECORDS SUMMARY | 2020-02-01 15:59 | XMS REPORT | Encounter Summary ---
Author Author [facility] Jim G[place], [facility] Organization [facility] [place], [place], [facility] Address Unknown Phone Unavailable Care Team Providers Care Outboard Motor Tester Name Role Phone Nathan Carter MD PCP Encounter Details Care Team Description Date Type Department Lilliana Kerns, [place] [facility] [place] [address] [place] [address] Canceled (Lap Winder Error) 03/24/2014 [facility] Imaging Servi mari Encounter [place] [address] [place] [address] Social History Date Tobacco Use Types Packs/Day Years Used Never Assessed Sex Assigned at Date Recorded Not on file Industry Job Start Date Occupation Not on file Not on file Not on file Travel End Travel History Travel Start No recent travel history available. documented as of this encounter Plan of Treatment Not on filedocumented as of this encounter Visit Diagnoses Diagnosis Injury, other and unspecified, finger documented in this encounter
--- OUTSIDE RECORDS SUMMARY | 2020-02-01 15:59 | XMS REPORT | Encounter Summary ---
Author Author [facility] [place] [place], [place], [facility] Address Unknown Phone Unavailable Care Team Providers Care Coding Specialist Home Health Name Role Phone Fox Schultz DO PCP Reason for Visit * Reason Comments Follow Up Encounter Details Care Team Description Date Type Department Fox Schultz DO [address] [place] [address] Acute sinusitis (Primary Dx) 07/03/2011 Office Visit [address] [address] Social History Date Tobacco Use [...] Signs Reading Time Taken Comments Vital Sign 132/70 07/03/2011 9:18 AM CDT Blood Pressure 68 07/03/2011 9:18 AM CDT Pulse 36.6 C (97.8 F) 07/03/2011 9:18 AM CDT Temperature 20 07/03/2011 9:18 AM CDT Respiratory Rate 98% 07/03/2011 9:18 AM CDT Oxygen Saturation - - Inhaled Oxygen Concentration 59.4 kg (131 lb) 07/03/2011 9:18 AM CDT Weight 173.2 cm (5' 8.2") 07/03/2011 9:18 AM CDT Height 19.8 07/03/2011 9:18 AM CDT Body Mass Index documented in this encounter Progress Notes * Fox Schultz DO - 07/03/2011 9:48 AM CDT HISTORY OF PRESENT ILLNESS Kushal Calixto, a 10 y.o. male. HPI Comments: Feeling better. REVIEW OF SYSTEMS Review of Systems Constitutional: Negative for fever and chills. HENT: Negative for congestion and sinus pressure. Respiratory: Negative for cough. Cardiovascular: Negative for chest pain and palpitations. Gastrointestinal: Negative for nausea, abdominal pain and diarrhea. PHYSICAL EXAM BP 132/70 | Pulse 68 | Temp(Src) 97.8 F (36.6 C) (Tympanic) | Resp 20 | Ht 6 8.2" (173.2 cm) | Wt 131 lb (59.421 kg) | BMI 19.80 kg/m2 | SpO2 98% Physical Exam Vitals reviewed. Constitutional: He is active. HENT: Right Ear: Tympanic membrane normal. Left Ear: Tympanic membrane normal. Cardiovascular: Normal rate and regular rhythm. Pulmonary/Chest: Effort normal and breath sounds normal. Abdominal: Soft. Bowel sounds are normal. Neurological: He is alert. ASSESSMENT and PLAN: Encounter Diagnoses 1. Acute sinusitis (461.9J) documented in this encounter Plan of Treatment Not on filedocumented as of this encounter Visit Diagnoses Diagnosis Acute sinusitis - Primary Acute sinusitis, unspecified documented in this encounter
== END 2020-02-01 13:44 | disposition home or self-care (01) ==
LOC: EDUNIT# 13:13 → ER 13:14
DX: S61.214D Laceration without foreign body of right ring finger without damage to nail, subsequent encounter (principal); X58.XXXD Exposure to other specified factors, subsequent encounter

== ENCOUNTER 2020-02-03 14:23 | Emergency (ER) | payer BC ==
[~2020-02-03] VITALS: Ht 190.5 cm; Wt 79.3 kg
[2020-02-03 15:00] VITALS: BP 144/83
== END 2020-02-03 15:01 | disposition home or self-care (01) ==
LOC: EDUNIT# 14:23 → ER 14:24
DX: S61.214D Laceration without foreign body of right ring finger without damage to nail, subsequent encounter (principal); X58.XXXD Exposure to other specified factors, subsequent encounter

== ENCOUNTER 2020-03-19 06:06 | Emergency (ER) | payer BC ==
[~2020-03-19] VITALS: Ht 187 cm; Wt 77.3 kg
[2020-03-19 06:20] VITALS: BP 99/63
[2020-03-19] MEDS ORDERED: AMOX-358 PO (06:45)
--- NOTE | 2020-03-19 06:46 | ED EENT ---
History of Present Illness General Chief Complaint: Ear Problems Stated Complaint: LEFT EAR PAIN Nursing Triage Note: Pt ambulates to FT1 with c/o left ear pain that radiates to jaw since about 0230 this am. Pt states he hears cracking/popping sounds and thinks he has water in his ear. Pt also reports some bloody discharge from ear this morning. Source: patient Exam Limitations: no limitations History of Present Illness Date Seen by Provider: Mar 19, 2020 Time Seen by Provider: 06:31 Initial Comments Patient presents ER by private conveyance with chief complaint of earache on his left side starting late last night and getting worse today. He's had no wax out of his ear and he's used a Q-tip to try and clean his ear out without any success. No fevers or chills sore throat cough shortness of breath. Allergies and Home Medications Allergies Coded Allergies: No Known Drug Allergies (Unverified , 04/02/10) Home Medications Sulfamethoxazole/Trimethoprim 1 Each Tablet, 1 EACH PO BID Prescribed by: LESVIA ENGLISH on 01/22/20 0310 Patient Home Medication List Home Medication List Reviewed: Yes Review of Systems Review of Systems Constitutional: No chills, No fever Eyes: Denies Blindness, Denies Blurred Vision Ears: See HPI; Denies Dizziness; Pain Nose: denies clots, denies congestion Mouth: denies clots, denies pain, denies swelling Throat: denies pain, denies swelling All Other Systems Reviewed Negative Unless Noted: Yes Past Hjqngpn-Vajgcu-Ivjikv Hx Patient Social History Alcohol Use: Occasionally Uses Number of Drinks Today: FF Alcohol Beverage of Choice: Vodka Recreational Drug Use: Yes Drug of Choice: Marijuana Smoking Status: Current Everyday Smoker Type Used: Cigarettes Recent Foreign Travel: No Contact w/Someone Who Travel: No Recent Infectious Disease Expo: No Recent Hopitalizations: No Immunizations Up To Date Tetanus Booster (TDap): Less than 5yrs PED Vaccines UTD: Yes Seasonal Allergies Seasonal Allergies: No Past Medical History Surgeries: Yes (WISDOM TEETH REMOVED) Respiratory: No Cardiac: No Neurological: No Genitourinary: No Gastrointestinal: No Musculoskeletal: No Endocrine: No HEENT: No Cancer: No Psychosocial: No Integumentary: No Blood Disorders: No Family Medical History No Pertinent Family Hx Physical Exam Vital Signs Vital Signs - First Documented 03/19/20 06:20 Temp 37.1 Pulse 84 Resp 19 B/P (MAP) 99/63 (75) Pulse Ox 99 O2 Delivery Room Air Height, Weight, BMI Height: 6'2.00" Weight: 180lbs. oz. 81.034556qg; 22.00 BMI Method:Actual General Appearance: WD/WN, mild distress Eyes: bilateral eye normal inspection, bilateral eye PERRL, bilateral eye EOMI Ears: right ear canal normal, right ear TM normal; left ear tenderness, left ear TM dull, left ear TM red, left ear TM bulging; bilateral ear auricle normal Nose: normal inspection; No active bleeding, No discharge Mouth/Throat: normal mouth inspection, pharynx normal Neck: non-tender, full range of motion, supple, normal inspection Neurologic/Psychiatric: alert, oriented x 3 Skin: normal color, warm/dry Procedures/Interventions Suture Size: 4-0 Progress/Results/Core Measures Results/Orders Vital Signs/I&O 03/19/20 06:20 Temp 37.1 Pulse 84 Resp 19 B/P (MAP) 99/63 (75) Pulse Ox 99 O2 Delivery Room Air Blood Pressure Mean: 75 Departure Impression Primary Impression: Otitis media Qualified Codes: H66.90 - Otitis media, unspecified, unspecified ear Disposition: HOME, SELF-CARE Condition: Stable Departure-Patient Inst. Decision time for Depature: 06:43 Referrals: NO,LOCAL PHYSICIAN (PCP/Family) Primary Care Physician Patient Instructions: Serous Otitis Media (DC) Add. Discharge Instructions: Warm compresses, Tylenol thousand milligrams every 8 hours, ibuprofen 800 mg every 8 hours as needed. Augmentin 1 tablet twice a day for the next 10 days. If your symptoms go away then continue the antibiotics for at least 2-3 more days before quitting. All discharge instructions reviewed with patient and/or family. Voiced understanding. Scripts Amoxicillin/Potassium Clav (Augmentin 875-125 Tablet) 1 Each Tablet 1 EACH PO BID for 10 Days, #20 TAB 0 Refills Prov: NORMA CALLE 03/19/20 NORMA CALLE Mar 19, 2020 06:46
== END 2020-03-19 06:55 | disposition home or self-care (01) ==
LOC: EDUNIT# 06:06 → ER 06:09
DX: H66.92 Otitis media, unspecified, left ear (principal)
CPT/HCPCS: 99282

== ENCOUNTER → 2021-01-03 | Outpatient (CLI) | payer BC ==
[~2021-01-03] MED LIST changes: +AMOX-358 PO
--- NOTE | 2021-01-03 11:49 | Diagnostic Imaging Report ---
PROCEDURE: US Gallbladder. TECHNIQUE: Multiple Real-time grayscale images were obtained over the right upper quadrant in various projections. INDICATION: Right upper quadrant pain. FINDINGS: The liver is at the upper limits of normal in size at 18 cm. No liver mass is detected. The portal vein is patent and shows normal direction of flow. The gallbladder is without stones or sludge. No wall thickening or biliary ductal dilatation is seen. The pancreas is unremarkable. The aorta is nonaneurysmal. The IVC is patent. The right kidney is without calculus or hydronephrosis. There is no ascites. IMPRESSION: Unremarkable gallbladder ultrasound. Dictated by: Dictated on workstation # [id number]
== END ==
LOC: RAD 08:21
PROVIDERS: ATTEND Nurse Practitioner Family
DX: R10.11 Right upper quadrant pain (principal); R11.0 Nausea
CPT/HCPCS: 76705

== ENCOUNTER 2021-07-05 15:00 | Emergency (ER) | payer BC ==
[~2021-07-05] VITALS: Ht 187 cm; Wt 83.9 kg
[~2021-07-05 15:00] MED LIST changes: -SULF1TAB35 PO; +SULF1TAB38 PO
--- NOTE | 2021-07-05 16:56 | ED General ---
General Chief Complaint: COVID19 Suspect/Confirmed Stated Complaint: COVID +,OAKES,CONGESTION BODY ACHES Nursing Triage Note: PT ARRIVES TO ER WITH C/O PAIN AROUND HIS RIBS INCREASING OVER THE LAST COUPLE OF DAYS. PT WAS COVID + 06/29/21 Source of Information: Patient Exam Limitations: No Limitations (JENNIFER BENAVIDES APRN) History of Present Illness Date Seen by Provider: Jul 05, 2021 Time Seen by Provider: 15:50 Initial Comments To ER by private vehicle with reports of pain throughout the chest and increasing coughing. He tested positive for Covid on 06/29/2021. He became symptomatic on 06/28/2021. Timing/Duration: 1 Week Severity: Moderate Associated Systoms: Denies Symptoms (JENNIFER BENAVIDES APRN) Allergies and Home Medications Allergies Coded Allergies: No Known Drug Allergies (Unverified , 04/02/10) Patient Home Medication List Home Medication List Reviewed: Yes (JENNIFER BENAVIDES APRN) Amoxicillin/Potassium Clav (Augmentin 875-125 Tablet) 1 Each Tablet, 1 EACH PO BID Prescribed by: NORMA CALLE on 03/19/20 0645 Sulfamethoxazole/Trimethoprim (Bactrim Ds Tablet) 1 Each Tablet, 1 EACH PO BID Prescribed by: LESVIA ENGLISH on 01/22/20 0310 Review of Systems Review of Systems Constitutional: see HPI EENTM: see HPI Respiratory: see HPI, cough Cardiovascular: see HPI, chest pain Genitourinary: no symptoms reported Musculoskeletal: no symptoms reported Skin: no symptoms reported Psychiatric/Neurological: No Symptoms Reported Hematologic/Lymphatic: No Symptoms Reported Immunological/Allergic: no symptoms reported (JENNIFER BENAVIDES APRN) Past Uupuhlw-Jnbhka-Lrdujm Hx Patient Social History Tobacco Use?: No Use of E-Cig and/or Vaping dev: Yes E-Cig or Vaping type used: Nicotine Substance use?: No Alcohol Use?: No Pt feels they are or have been: No (JENNIFER BENAVIDES APRN) Immunizations Up To Date Tetanus Booster (TDap): Less than 5yrs PED Vaccines UTD: Yes Influenza Vaccine Up-to-Date: No; Not Current (JENNIFER BENAVIDES APRN) Seasonal Allergies Seasonal Allergies: No (JENNIFER BENAVIDES APRN) Past Medical History Surgeries: Yes (WISDOM TEETH REMOVED) Respiratory: No Cardiac: No Neurological: No Genitourinary: No Gastrointestinal: No Musculoskeletal: No Endocrine: No HEENT: No Cancer: No Psychosocial: No Integumentary: No Blood Disorders: No (JENNIFER BENAVIDES APRN) Family Medical History No Pertinent Family Hx (JENNIFER BENAVIDES APRN) Physical Exam Vital Signs Vital Signs - First Documented 07/05/21 16:20 Temp 36.4 Pulse 74 Resp 18 B/P (MAP) 129/85 (100) Pulse Ox 100 O2 Delivery Room Air (DESHAWN GARRIDO MD) Vital Signs Capillary Refill : (JENNIFER BENAVIDES APRN) Height, Weight, BMI Height: 6'2.00" Weight: 180lbs. oz. 81.449561mx; 23.00 BMI Method:Actual General Appearance: No Apparent Distress, WD/WN, Other (Alert and oriented heart rate 72 oxygen saturation 99 to 100% on room air no dyspnea no coughing in the room.) Eyes: Bilateral Eye Normal Inspection, Bilateral Eye PERRL Neck: Full Range of Motion, Normal Inspection Respiratory: No Accessory Muscle Use, No Respiratory Distress Cardiovascular: Regular Rate, Rhythm, Normal Peripheral Pulses Gastrointestinal: Normal Bowel Sounds, Non Tender, Soft Extremity: Normal Capillary Refill, Normal Inspection Neurologic/Psychiatric: Alert, Oriented x3 Skin: Normal Color, Warm/Dry (JENNIFER BENAVIDES APRN) Procedures/Interventions Suture Size: 4-0 (JENNIFER BENAVIDES APRN) Progress/Results/Core Measures Suspected Sepsis SIRS Temperature: Pulse: 74 Respiratory Rate: 18 Blood Pressure 129 /85 Mean: 100 (JENNIFER BENAVIDES APRN) Results/Orders Vital Signs/I&O 07/05/21 07/05/21 16:20 17:20 Temp 36.4 36.4 Pulse 74 73 Resp 18 18 B/P (MAP) 129/85 (100) 125/80 Pulse Ox 100 100 O2 Delivery Room Air Room Air (DESHAWN GARRIDO MD) Vital Signs/I&O Capillary Refill : (JENNIFER BENAVIDES APRN) Blood Pressure Mean: 100 Departure Impression Primary Impression: COVID Disposition: 01 HOME, SELF-CARE Condition: Stable Departure-Patient Inst. Decision time for Depature: 16:56 (JENNIFER BENAVIDES APRN) Referrals: NO,LOCAL PHYSICIAN (PCP/Family) Primary Care Physician Patient Instructions: COVID-19 ED ATTENDING PHYSICIAN NOTE: I was physically present as attending physician in the emergency department during the care of this patient, but I was not directly involved in the decision making or delivery of care for this patient. (DESHAWN GARRIDO MD) JENNIFER BENAVIDES APRN Jul 05, 2021 16:56 DESHAWN GARRIDO MD Jul 06, 2021 06:16
--- NOTE | 2021-07-05 17:11 | Diagnostic Imaging Report ---
EXAM: Chest 1 view, AP/PA only. INDICATION: Chest pain. COMPARISON: None. FINDINGS: Normal heart size and central pulmonary vascularity. No focal pulmonary opacity. No pleural effusion or pneumothorax. No acute osseous finding. IMPRESSION: No acute cardiopulmonary finding. Dictated by: Dictated on workstation # [id number]
[2021-07-05 17:20] VITALS: BP 125/80
== END 2021-07-05 17:18 | disposition home or self-care (01) ==
LOC: EDUNIT# 15:00 → ER 15:02
DX: U07.1 COVID-19 (principal)
CPT/HCPCS: 71045

== ENCOUNTER → 2023-05-10 | Outpatient (CLI) | payer BC ==
[~2023-05-10] MED LIST changes: +GADOTERATE 0.5 MMOL/ML (CLARISCAN) 20 ML VIAL IV ONE
--- NOTE | 2023-05-10 12:28 | Diagnostic Imaging Report ---
CLINICAL INDICATION: Patient with migraine since having Covid 2 years ago. Exam: MRI of the brain performed without and with 16 cc of Clariscan IV contrast. Sequences include axial DWI, ADC map, coronal gradient echo, axial T2, axial FLAIR, axial T1, axial T1 post IV contrast, coronal T1 fat-sat post IV contrast, and sagittal T1 post IV contrast. Comparison: None. Findings: There is susceptibility hardware artifact involving the anterior aspect of the head which is worse involving the diffusion weighted sequences and gradient echo sequences. The visualized portions of brain parenchyma shows no acute infarct, intracranial hemorrhage or acute abnormality. The brain parenchymal volume appears appropriate for patient's age. The brain parenchyma has normal signal as visualized. There is loss of CSF signal suppression on the axial FLAIR sequence anteriorly. Visualized [place] vascular structures show no significant abnormality. There is no abnormal IV contrast enhancement. The sellar and suprasellar regions are unremarkable. The paranasal sinuses, orbits, and globes are obscured and unable to be evaluated. Mastoid air cells are clear. IMPRESSION: 1: The patient has dental hardware which causes susceptibility hardware artifact limiting evaluation of the anterior aspect of the head. 2: Unremarkable MRI of the brain, as visualized. Dictated by: Dictated on workstation # [id number]
== END ==
LOC: RAD 08:38
PROVIDERS: ATTEND Nurse Practitioner Family
DX: Z00.00 Encounter for general adult medical examination without abnormal findings (principal); G43.909 Migraine, unspecified, not intractable, without status migrainosus; I10 Essential (primary) hypertension
CPT/HCPCS: 70553

== ENCOUNTER 2023-05-19 11:15 | Emergency (ER) | payer BC ==
[~2023-05-19] VITALS: Ht 188 cm; Wt 88.5 kg
[~2023-05-19 11:15] MED LIST changes: -GADOTERATE 0.5 MMOL/ML (CLARISCAN) 20 ML VIAL IV ONE
[2023-05-19] MEDS ORDERED: NS IV 1000 ML 1,000 ML IV STA (11:38)
[2023-05-19] MEDS ORDERED: ONDANSETRON INJECTION 4 MG/2 ML (SDV) IVP ONE (11:45)
[2023-05-19] MEDS ORDERED: diphenhydrAMINE INJ 50 MG/ML VIAL IVP ONE (11:45)
[2023-05-19] MEDS ORDERED: PROCHLORPERAZINE INJ 10 MG/2ML VIAL IV ONE (11:45)
--- NOTE | 2023-05-19 11:45 | ED Headache ---
General Chief Complaint: Head/Cervical Problems Stated Complaint: VOMITING/HIGH BLOOD PRESSURE/LOSSING CONSCIOUSNESS Nursing Triage Note: PT STATES MIGRAINE, SS STARTED ABOUT 0800 WITH VISUAL ISSUES, LT ARM NUMBNESS AND TINGLING IN NOSE AND FACE, TAKES MEDS FOR MIGRAINES Source: patient Exam Limitations: no limitations History of Present Illness Date Seen by Provider: May 19, 2023 Time Seen by Provider: 11:41 Initial Comments Patient is a 22-year-old male who presents the ED for a migraine. Patient states head pain started around 8 AM. Patient started feeling a sharp pain to the right side of his head. Also reports pressure. Rates pain 10 out of 10. History of migraines states very similar but seems to be one of the worst. Patient reports flashing lights in his visions bilateral. Reports numbness and tingling to the right and left side of his face nose and lips. Numbness and tingling started from his left hand radiating up his left arm. Denies of any weakness at this time. He states he felt like he had some left arm weakness while putting on his close just right before arrival. Patient took his propanolol and Ubrelvy without much improvement of his head pain. Patient reports vomiting. Photophobia and phonophobia which typically is associated with his migraines. Has been applying a towel over his face which seems to help some. Vomiting on arrival. Patient denies fever, cough, diarrhea, chest pain, loss of vision, ear pain, sore throat. Patient gets a migraine twice a month. Had an MRI performed last week. Allergies and Home Medications Allergies Coded Allergies: No Known Drug Allergies (Unverified , 04/02/10) Patient Home Medication List Home Medication List Reviewed: Yes Amoxicillin/Potassium Clav (Augmentin 875-125 Tablet) 1 Each Tablet, 1 EACH PO BID Prescribed by: NORMA CALLE on 03/19/20 6376 Sulfamethoxazole/Trimethoprim (Bactrim Ds Tablet) 1 Each Tablet, 1 EACH PO BID Prescribed by: LESVIA ENGLISH on 01/22/20 0310 Review of Systems Review of Systems Constitutional: No chills, No diaphoresis, No malaise, No weakness Eyes: Denies Blurred Vision, Denies Drainage, Denies Decreased Acuity; Photophobia, Other (Flashing vision bilateral) Ears, Nose, Mouth, Throat: denies ear pain, denies ear discharge, denies epistaxis, denies mouth pain Respiratory: No cough, No dyspnea on exertion Cardiovascular: No chest pain Gastrointestinal: No abdominal pain, No diarrhea; nausea, vomiting Genitourinary: No decreased output, No discharge Musculoskeletal: No back pain, No joint pain Skin: No change in color, No change in hair/nails All Other Systems Reviewed Negative Unless Noted: Yes Past Bigifmy-Kamjuy-Rdrdgt Hx Patient Social History Tobacco Use?: Yes Use of E-Cig and/or Vaping dev: Yes E-Cig or Vaping type used: Nicotine Substance use?: No Alcohol Use?: No Immunizations Up To Date Tetanus Booster (TDap): Less than 5yrs PED Vaccines UTD: Yes Second COVID19 Vaccination Merrick: YES Seasonal Allergies Seasonal Allergies: No Past Medical History Surgery/Hospitalization HX: MIGRAINES, DENTAL, HTN Surgeries: Yes (WISDOM TEETH REMOVED) Respiratory: No Cardiac: No Neurological: No Genitourinary: No Gastrointestinal: No Musculoskeletal: No Endocrine: No HEENT: No Cancer: No Psychosocial: No Integumentary: No Blood Disorders: No Family Medical History No Pertinent Family Hx Physical Exam Vital Signs Vital Signs - First Documented 05/19/23 05/19/23 11:23 12:53 Temp 36.4 Pulse 72 Resp 18 B/P (MAP) 126/48 Pulse Ox 98 O2 Delivery Room Air Capillary Refill : Less Than 3 Seconds Height, Weight, BMI Height: 6'2.00" Weight: 180lbs. oz. 81.862506sg; 25.00 BMI Method:Actual General Appearance: WD/WN, no apparent distress HEENT: PERRL/EOMI, normal ENT inspection, TMs normal, pharynx normal Neck: non-tender, full range of motion, supple Cardiovascular: regular rate, rhythm, no edema, no gallop, no JVD Respiratory: chest non-tender, lungs clear, normal breath sounds, no respiratory distress, no accessory muscle use Gastrointestinal: normal bowel sounds, non tender, soft, no organomegaly Back: normal inspection, no CVA tenderness, no vertebral tenderness Extremities: normal range of motion, non-tender, normal inspection, no pedal edema, no calf tenderness Cra[place] Nerves: normal hearing, normal speech, PERRL Coordination/Gait: normal finger to nose, normal gait Motor/Sensory: no motor deficit, no sensory deficit, no pronator drift Skin: normal color, warm/dry Procedures/Interventions Suture Size: 4-0 Progress/Results/Core Measures Results/Orders Lab Results Laboratory Tests Test 05/19/23 11:45 Range/Units White Blood Count 6.0 4.3-11.0 10^3/uL Red Blood Count 5.04 4.30-5.52 10^6/uL Hemoglobin 14.5 13.3-17.7 g/dL Hematocrit 42 40-54 % Mean Corpuscular Volume 84 80-99 fL Mean Corpuscular Hemoglobin 29 25-34 pg Mean Corpuscular Hemoglobin Concent 34 32-36 g/dL Red Cell Distribution Width 11.9 10.0-14.5 % Platelet Count 220 130-400 10^3/uL Mean Platelet Volume 10.6 9.0-12.2 fL Immature Granulocyte % (Auto) 0 % Neutrophils (%) (Auto) 62 42-75 % Lymphocytes (%) (Auto) 24 12-44 % Monocytes (%) (Auto) 9 0-12 % Eosinophils (%) (Auto) 4 0-10 % Basophils (%) (Auto) 1 0-10 % Neutrophils # (Auto) 3.7 1.8-7.8 10^3/uL Lymphocytes # (Auto) 1.4 1.0-4.0 10^3/uL Monocytes # (Auto) 0.6 0.0-1.0 10^3/uL Eosinophils # (Auto) 0.2 0.0-0.3 10^3/uL Basophils # (Auto) 0.1 0.0-0.1 10^3/uL Immature Granulocyte # (Auto) 0.0 0.0-0.1 10^3/uL Sodium Level 141 135-145 MMOL/L Potassium Level 4.2 3.6-5.0 MMOL/L Chloride Level 107 98-107 MMOL/L Carbon Dioxide Level 23 21-32 MMOL/L Anion Gap 11 5-14 MMOL/L Blood Urea Nitrogen 11 7-18 MG/DL Creatinine 1.14 0.60-1.30 MG/DL Estimat Glomerular Filtration Rate 92 BUN/Creatinine Ratio 10 Glucose Level 100 70-105 MG/DL Calcium Level 9.5 8.5-10.1 MG/DL Corrected Calcium 8.5-10.1 MG/DL Total Bilirubin 1.0 0.1-1.0 MG/DL Aspartate Amino Transf (AST/SGOT) 14 5-34 U/L Alanine Aminotransferase (ALT/SGPT) 11 0-55 U/L Alkaline Phosphatase 66 40-136 U/L Total Protein 7.3 6.4-8.2 GM/DL Albumin 4.6 H 3.2-4.5 GM/DL My Orders Orders - YUDY KAHN Cbc With Automated Diff (05/19/23 11:38) Comprehensive Metabolic Panel (05/19/23 11:38) Ns Iv 1000 Ml (Ns Iv 1000 Ml) (05/19/23 11:38) Ondansetron Injection (Ondansetron Inj (05/19/23 11:45) Prochlorperazine Injection (Prochlorpera (05/19/23 11:45) Diphenhydramine Injection (Diphenhydram (05/19/23 11:45) Ct Head Wo (05/19/23 11:38) Medications Given in ED Current Medications Medications Dose Ordered Sig/Lynda Route Start Time Stop Time Status Last Admin Dose Admin Diphenhydramine HCl 25 mg ONCE ONCE IVP 05/19/23 11:45 05/19/23 11:46 DC 05/19/23 11:54 25 MG Ondansetron HCl 4 mg ONCE ONCE IVP 05/19/23 11:45 05/19/23 11:46 DC 05/19/23 11:54 4 MG Prochlorperazine Edisylate 10 mg ONCE ONCE IV 05/19/23 11:45 05/19/23 11:46 DC 05/19/23 11:54 10 MG Vital Signs/I&O 05/19/23 05/19/23 11:23 12:53 Temp 36.4 36.4 Pulse 72 70 Resp 18 18 B/P (MAP) 126/48 Pulse Ox 98 O2 Delivery Room Air Room Air Departure Communication (PCP) Reviewed previous ER visits, H&P, lab testing. Differential diagnosis atypical migraine, stroke, brain lesion, viral syndrome. History of migraines. Presents to ED with right-sided head pain rates 10 out of 10. History of migraines states pain feels very similar but one of the worst. Patient has numbness and tingling throughout his face and left arm. No specific weakness. NIH is 0. Low risk factors for stroke. States does not typically have the numbness and tingling with his migraines. Due to the change in symptoms CT scan of the head was ordered which was unremarkable. CBC, CMP was ordered. Migraine cocktail with Toradol, Compazine, Benadryl with a liter of fluid. Lab work grossly unremarkable. Improvement of his head pain. Resolution of all his numbness sensation of his face and left arm. After reviewing patient's history and imaging patient had an MRI performed on 05/10/2023 for his chronic migraines which was unremarkable. Patient does take Imitrex, propanolol and ubrelvy. Suspect today symptoms are secondary to atypical migraine. Clinically not necessarily concern for stroke or cardiac. Patient has no chest pain or shortness of breath. NIH remains 0. Improvement of his symptoms. Patient request to be discharged. Recommend follow-up with your primary care physician 2 to 3 days for reevaluation. Continue with your pain regimen. Vital signs stable Impression Primary Impression: Migraine Disposition: 01 HOME, SELF-CARE Condition: Stable Departure-Patient Inst. Decision time for Depature: 12:48 Referrals: RADHAMES ROSE APRN (PCP/Family) Primary Care Physician Patient Instructions: Migraines (DC) Add. Discharge Instructions: Continue with her medication regimen at home. If any worsening symptoms return back to ED. Follow-up your PCP in 2 to 3 days for evaluation All discharge instructions reviewed with patient and/or family. Voiced understanding. YUDY KAHN May 19, 2023 11:45
[2023-05-19 11:53] LABS: BASOPHILS # (AUTO) 0.1 10^3/uL (0.0-0.1); BASOPHILS % (AUTO) 1 % (0-10); EOSINOPHILS # (AUTO) 0.2 10^3/uL (0.0-0.3); EOSINOPHILS % (AUTO) 4 % (0-10); HEMATOCRIT 42 % (40-54); HEMOGLOBIN 14.5 g/dL (13.3-17.7); LYMPHOCYTES # (AUTO) 1.4 10^3/uL (1.0-4.0); LYMPHOCYTES % (AUTO) 24 % (12-44); MEAN CORPUSCULAR HEMOGLOBIN 29 pg (25-34); MEAN CORPUSCULAR HGB CONC 34 g/dL (32-36); MEAN CORPUSCULAR VOLUME 84 fL (80-99); MEAN PLATELET VOLUME 10.6 fL (9.0-12.2); MONOCYTES # (AUTO) 0.6 10^3/uL (0.0-1.0); MONOCYTES % (AUTO) 9 % (0-12); NEUTROPHILS # (AUTO) 3.7 10^3/uL (1.8-7.8); NEUTROPHILS % (AUTO) 62 % (42-75); PLATELET COUNT 220 10^3/uL (130-400)
[2023-05-19 12:15] LABS: ALANINE AMINOTRANSFERASE 11 U/L (0-55); ALBUMIN 4.6 GM/DL (3.2-4.5); ALKALINE PHOSPHATASE 66 U/L (40-136); BUN/CREATININE RATIO 10; CALCIUM 9.5 MG/DL (8.5-10.1); CARBON DIOXIDE 23 MMOL/L (21-32); CHLORIDE 107 MMOL/L (98-107); CREATININE SERUM 1.14 MG/DL (0.60-1.30); GFR ESTIMATED 92; GLUCOSE 100 MG/DL (70-105); POTASSIUM 4.2 MMOL/L (3.6-5.0); SODIUM 141 MMOL/L (135-145); TOTAL PROTEIN 7.3 GM/DL (6.4-8.2)
--- NOTE | 2023-05-19 12:15 | Diagnostic Imaging Report ---
PROCEDURE: CT head without contrast. TECHNIQUE: Multiple contiguous axial images were obtained through the brain without the use of intravenous contrast. Auto Exposure Controls were utilized during the CT exam to meet ALARA standards for radiation dose reduction. INDICATION: Headache, left-sided numbness. COMPARISON: MRI of the brain 05/10/2023. FINDINGS: The brain parenchyma is normal in attenuation. No intra- or extra-axial mass or fluid collection. No acute hemorrhage. The ventricles are normal in size, shape, and morphology. The arzola-white matter junction is normal. The subarachnoid cisterns are patent. The visualized paranasal sinuses are normal. The visualized portions of the orbits and globes are normal. The mastoid air cells are clear. The tire cord weaver topogram shows no lytic lesion or fracture. Impression: No acute intracranial process. Dictated by: Dictated on workstation # [id number]
[2023-05-19 12:53] VITALS: BP 126/48
== END 2023-05-19 12:53 | disposition home or self-care (01) ==
LOC: EDUNIT# 11:15 → ER 11:18
DX: G43.909 Migraine, unspecified, not intractable, without status migrainosus (principal); I10 Essential (primary) hypertension; F17.290 Nicotine dependence, other tobacco product, uncomplicated; Z79.899 Other long term (current) drug therapy
CPT/HCPCS: 36415; 70450; 80053; 85025

== ENCOUNTER 2023-07-12 14:21 | Outpatient (RCR) | payer BC | END 2023-07-16 | disposition home or self-care (01) | DX: M54.2 Cervicalgia (principal); R51.9 Headache, unspecified; I10 Essential (primary) hypertension ==

== ENCOUNTER 2023-07-26 12:53 | Outpatient (RCR) | payer BC | END 2023-08-15 | disposition home or self-care (01) | DX: M54.2 Cervicalgia (principal); M54.6 Pain in thoracic spine ==